=== PATIENT | female | born 1950 | race Two or more races ===

== ENCOUNTER → 2023-04-26 | Outpatient (CLI) | payer MEDICARE, SELFPAY ==
[2023-04-26 12:23] LABS: Absolute Neutrophil Count 2.6 X10^3/uL (2.0-7.7); Basophil# 0.06 X10^3/uL; Basophil% 1.1 % (0-1); Eosinophil# 0.25 X10^3/uL; Eosinophils% 4.6 % (0-5); Hematocrit 43.5 % (37-47); Hemoglobin 12.7 g/dL (12.0-15.0); Mean Corp Hgb Conc 29.2 g/dL (32-36); Mean Corpuscular Hgb 26.7 pg (27.0-32.0); Mean Corpuscular Volume 91.4 fL (81-99); Mean Platelet Vol. 11.3 fl (6.2-12.0); Monocyte# 0.32 X10^3/uL; Monocyte% 5.9 % (0-10); NRBC Flagged by Analyzer 0 % (0-5); Neutrophil # 2.64 X10^3/uL (2.7-7.7); Neutrophil % 49.2 % (47-70); Platelet Count 336 K/mm3 (150-450); RBC Distribution Width CV 13.2 % (11.6-14.6); RBC Distribution Width SD 43.9 fl (35.1-43.9); Red Blood Count 4.76 M/mm3 (4.2-5.4); White Blood Count 5.4 K/mm3 (4.4-11.0)
[2023-04-26 12:57] LABS: Vitamin D,25 Hydroxy 15.9 ng/mL
[2023-04-26 13:15] LABS: ALB/GLOB Ratio 1.1 RATIO (0.9-2.4); AST(SGOT) 18 U/L (15-37); Alanine Aminotransfer ALT/SGPT 28 U/L (13-56); Albumin, Serum 3.7 g/dL (3.2-5.0); Alkaline Phosphatase 72 U/L (45-117); Anion Gap 5 (5-15); BUN 14 mg/dL (7-18); Calcium,Total 9.6 mg/dL (8.5-10.1); Chloride 105 mmol/L (98-107); Cholesterol 196 mg/dL (200); Creatinine, Serum 0.64 mg/dL (0.55-1.02); EST Glomerular Filtration Rate 97 mL/min (>60); Est Glom Filt Rate - Afr Amer 117 mL/min (>60); Globulin 3.4 g/dL (2.2-4.2); Glucose 123 mg/dL (74-106); High Density Lipoprotein 47 mg/dL; Potassium 3.7 mmol/L (3.5-5.1); Protein, Total 7.1 g/dL (6.4-8.2); Sodium Level 139 mmol/L (136-145); Thyroid Stim Hormone (TSH) 0.49 uIU/mL (0.358-3.74); Triglycerides 381 mg/dL; Very Low Density Lipoprotein 76 mg/dL (5-40)
== END | disposition home or self-care (01) ==
PROVIDERS: PCP Internal Medicine; Referring Provider Internal Medicine; Visit Provider Internal Medicine
DX: E55.9 Vitamin D deficiency, unspecified (principal); E03.9 Hypothyroidism, unspecified; I10 Essential (primary) hypertension; M54.41 Lumbago with sciatica, right side; G89.29 Other chronic pain
CPT/HCPCS: 36415; 80053; 80061; 82306; 84443; 85025

== ENCOUNTER → 2023-07-07 | Outpatient (CLI) | payer MEDICARE, SELFPAY | END | disposition home or self-care (01) | LOC: LABSPEC 15:13 | PROVIDERS: PCP Internal Medicine; Referring Provider Physician Assistant; Visit Provider Physician Assistant | DX: R05.9 Cough, unspecified (principal) | CPT/HCPCS: 87635 ==

== ENCOUNTER → 2023-09-06 | Outpatient (CLI) | payer MEDICARE, SELFPAY ==
--- NOTE | 2023-09-06 14:40 | RAD_ITS ---
INDICATION: cough EXAMINATION/TECHNIQUE: X-RAY - XR Chest 2 Views COMPARISON: No relevant prior comparison study available FINDINGS: LINES/DEVICES: None. LUNGS: Small dense nodule in the left midlung zone likely due to granuloma. Elevation of the right hemidiaphragm. No focal infiltrate is seen. No evidence of pleural effusions. MEDIASTINUM AND CARDIOVASCULAR STRUCTURES: Cardiac silhouette not enlarged. Central airways and mediastinal contour are unremarkable. BONES AND SOFT TISSUES: Unremarkable. RAD/Chest PA and Lateral IMPRESSION: No radiographic evidence of acute cardiopulmonary disease. Electronically Signed: Martin Lim MD at 14:58 EST ,
--- OUTSIDE RECORDS SUMMARY | 2023-09-06 18:46 | XMS RPT_ITS | CCD ---
Author Name Unknown Address [address] [place] [address] Organization [facility] Care Team Providers Care Insole Lip Turner Name Role Phone [facility] LAI, DAGO Primary Care Physician JETHRO FORD, JEFFERY Myers Attending Lindsay DE DIOS MD, [facility] Primary Care Unavailable [facility] LAI, [facility] Primary Care Unavailable DODSON GAS TENDER-RESEARCH NURSE, CHEPE Attending Unavailab vinny DODSON APRN-RESEARCH NURSE, CHEPE Attending Santiago Quiñonez MD, DR ADELE [employer] Abbe DE DIOS MD, [facility] Primary Care Unavailable DODSONNAS HEBERT-RESEARCH NURSE, CHEPE Attending Santiago Quiñonez MD, DR ADELE [employer] Abbe DE DIOS MD, DAGO Primary Care Unavailable JUAN C LAI, DR ADELE [employer] Attending Abbe DE DIOS MD, D[facility] Primary Care Unavailable JUAN C LAI, DR ADELE [facility] Attending Abbe DE DIOS MD, [facility] Primary Care Unavailable [facility] LA[facility], DAGO Primary Care Unavailable DODSON GAS TENDER-RESEARCH NURSE, CHEPE Attending Santiago Martins APRN-CLEMENCIA, CHEPE Attending Santiago Jimenez MD, DAGO Primary Care Unavailable Allergies Allergy Classification Reported Allergen(s) Allergy Type Date of Onset Reaction(s) Facility (16 sources) Acetaminophen / HYDROcodone; Translations: [acetaminophen-hyd rocodone] Drug Allergy [facility] (16 sources) oxyCODONE; Translations: [oxycodone] Drug Allergy [facility] (16 sources) traMADol; Translations: [tramadol] Drug Allergy [facility] Medications Current Medications Medication Drug Class(es) Dates Sig (Normalized) Sig (Original) acetaminophen 500 mg oral tablet (12 sources) Start: 03-14-2023 Tylenol Extra Strength 500 mg oral tablet Dose : 1,000 mg = 2 tab(s), Oral, QID, PRN as needed for pain, # 120 tab(s), 0 Refill(s) Start Date: 03/14/23 Status: Ordered Problems Problem Classification Problem Date Documented Date Episodic/Chronic Anxiety disorders (16 sources) Anxiety 07-01-2020 Chronic Disorders of lipid metabolism (16 sources) Hyperlipidemia 07-01-2020 Chronic Essential hypertension (16 sources) Hypertensive disorder 07-01-2020 Chronic Spondylosis; intervertebral disc disorders; other back problems (20 sources) Degeneration of lumbar intervertebral disc; Translations: [Other intervertebral disc degeneration, lumbar region] Onset: 05-05-2021 Chronic Spondylosis; intervertebral disc disorders; other back problems (20 sources) Low back pain; Translations: [Low back pain] Onset: 05-05-2021 Episodic Thyroid disorders (16 sources) Hypothyroidism 11-21-2017 Chronic Results Test Name Value Interpretation Reference Range Facil ity Vital Signs Date Time Vital Sign Value Performing Clinician Facility 08-08-2023 09:26-0500 Diastolic Blood Pressure Non-Invasive 110 mm[Hg] CHEPE DODSON APRN-RESEARCH NURSE [facility] 08-08-2023 09:26-0500 Heart rate 89 /min CHEPE DODSON APRN-RESEARCH NURSE [facility] 08-08-2023 09:26-0500 Respiratory rate 16 /min CHEPE DODSON APRN-RESEARCH NURSE [facility] 08-08-2023 09:26-0500 Systolic Blood Pressure Non-Invasive 166 mm[Hg] CHEPE DODSON APRN-RESEARCH NURSE [facility] 08-08-2023 09:20-0500 Diastolic blood pressure 100 mm[Hg] CHEPE DODSON APRN-RESEARCH NURSE [facility] 08-08-2023 09:20-0500 Heart rate 90 /min CHEPE DODSON GAS TENDER-RESEARCH NURSE [facility] 08-08-2023 09:20-0500 Respiratory rate 17 /min CHEPE IVORY GAS TENDER-RESEARCH NURSE [facility] 08-08-2023 09:20-0500 Systolic blood pressure 200 mm[Hg] CHEPE DODSON GAS TENDER-RESEARCH NURSE [facility] 08-08-2023 09:12-0500 Diastolic Blood Pressure Non-Invasive 110 mm[Hg] CHEPE DODSON GAS TENDER-RESEARCH NURSE [facility] 08-08-2023 09:12-0500 Heart rate 89 /min CHEPE DODSON GAS TENDER-RESEARCH NURSE [facility] 08-08-2023 09:12-0500 Reason For Taking VItal Signs CHEPE DODSON GAS TENDER-RESEARCH NURSE [facility] 08-08-2023 09:12-0500 Respiratory rate 17 /min CHEPE DODSON GAS TENDER-RESEARCH NURSE [facility] 08-08-2023 09:12-0500 Systolic Blood Pressure Non-Invasive 170 mm[Hg] CHEPE DODSON GAS TENDER-RESEARCH NURSE [facility] 08-08-2023 09:04-0500 Diastolic Blood Pressure Non-Invasive 106 mm[Hg] CHEPE DODSON GAS TENDER-RESEARCH NURSE [facility] 08-08-2023 09:04-0500 Heart rate 98 /min CHEPE DODSON GAS TENDER-RESEARCH NURSE [facility] 08-08-2023 09:04-0500 Systolic Blood Pressure Non-Invasive 207 mm[Hg] CHEPE DODSNO GAS TENDER-RESEARCH NURSE [facility] 08-08-2023 08:43-0500 Blood Pressure Location CHEPE DODSON GAS TENDER-RESEARCH NURSE [facility] 08-08-2023 08:43-0500 Body height 165.1 cm CHEPE DODSON GAS TENDER-RESEARCH NURSE [facility] 08-08-2023 08:43-0500 Body weight 88.5 kg CHEPE DODSON GAS TENDER-RESEARCH NURSE [facility] 08-08-2023 08:43-0500 Body weight 32.47 kg/m2 CHEPE DODSON GAS TENDER-RESEARCH NURSE [facility] 08-08-2023 08:43-0500 Heart rate 116 /min CHEPE DODSON GAS TENDER-RESEARCH NURSE [facility] 05-01-2023 13:30-0400 Diastolic Blood Pressure Non-Invasive [address] ADELE IRIZARRY MD [facility] 05-01-2023 13:30-0400 Heart rate 96 /min DR ADELE IRIZARRY MD [facility] 05-01-2023 13:30-0400 Respiratory rate 16 /min DR ADELE IRIZARRY MD [facility] 05-01-2023 13:30-0400 Systolic Blood Pressure Non-Invasive [address] ADELE IRIZARRY MD [facility] 05-01-2023 13:18-0400 Blood Pressure Cuff Size DR ADELE IRIZARRY MD [facility] 05-01-2023 13:18-[address] ADELE IRIZARRY MD [facility] 05-01-2023 13:18-[address] ADELE IRIZARRY MD [facility] 05-01-2023 13:18-0400 Diastolic Blood Pressure Non-Invasive [address] ADELE IRIZARRY MD [facility] 05-01-2023 13:18-0400 Heart rate 94 /min DR ADELE IRIZARRY MD [facility] 05-01-2023 13:18-0400 Reason For Taking VItal Signs DR ADELE IRIZARRY MD [facility] 05-01-2023 13:18-0400 Respiratory rate 18 /min DR ADELE IRIZARRY MD [facility] 05-01-2023 13:18-0400 Systolic Blood Pressure Non-Invasive [address] ADELE IRIZARRY MD [facility] 05-01-2023 13:11-0400 Diastolic Blood Pressure Non-Invasive [address] ADELE IRIZARRY MD [facility] 05-01-2023 13:11-0400 Heart rate 99 /min DR ADELE IRIZARRY MD [facility] 05-01-2023 13:11-0400 Respiratory rate 16 /min DR ADELE IRIZARRY MD [facility] 05-01-2023 13:11-0400 Systolic Blood Pressure Non-Invasive [address] ADELE IRIZARRY MD [facility] 05-01-2023 13:05-0400 Heart rate 97 /min DR ADELE IRIZARRY MD [facility] 05-01-2023 12:18-0400 Blood Pressure Cuff Size DR ADELE IRIZARRY MD [facility] 05-01-2023 12:18-[address] ADELE IRIZARRY MD [facility] 05-01-2023 12:18-[address] ADELE IRIZARRY MD [facility] 05-01-2023 12:18-0400 Body height [address] ADELE IRIZARRY MD [facility] 05-01-2023 12:18-0400 Body weight 86.[address] ADELE IRIZARRY MD [facility] 05-01-2023 12:18-0400 Body weight 31.85 kg/m2 DR ADELE IRIZARRY MD [facility] 05-01-2023 12:18-0400 Heart rate 60 /min DR ADELE IRIZARRY MD [facility] 09-02-2022 08:23-0500 Diastolic Blood Pressure Non-Invasive 111 1 CHEPE DODOSN GAS TENDER-RESEARCH NURSE [facility] 09-02-2022 08:23-0500 Heart rate 77 /min CHEPE DODSON GAS TENDER-RESEARCH NURSE [facility] 09-02-2022 08:23-0500 Respiratory rate 16 /min CHEPE DODSON GAS TENDER-RESEARCH NURSE [facility] 09-02-2022 08:23-0500 Systolic Blood Pressure Non-Invasive 155 1 CHEPE DODSON GAS TENDER-RESEARCH NURSE [facility] 09-02-2022 08:15-0500 Diastolic Blood Pressure Non-Invasive 78 1 CHEPE DODSON GAS TENDER-RESEARCH NURSE [facility] 09-02-2022 08:15-0500 Heart rate 75 /min CHEPE DODSON GAS TENDER-RESEARCH NURSE [facility] 09-02-2022 08:15-0500 Respiratory rate 21 /min CHEPE DODSON GAS TENDER-RESEARCH NURSE [facility] 09-02-2022 08:15-0500 Systolic Blood Pressure Non-Invasive 188 1 CHEPE DODSON GAS TENDER-RESEARCH NURSE [facility] 09-02-2022 08:09-0500 Diastolic Blood Pressure Non-Invasive 81 1 CHEPE DODSON GAS TENDER-RESEARCH NURSE [facility] 09-02-2022 08:09-0500 Heart rate 77 /min CHEPE DODSON GAS TENDER-RESEARCH NURSE [facility] 09-02-2022 08:09-0500 Reason For Taking VItal Signs CHEPE DODSON GAS TENDER-RESEARCH NURSE [facility] 09-02-2022 08:09-0500 Respiratory rate 18 /min CHEPE DODSON GAS TENDER-RESEARCH NURSE [facility] 09-02-2022 08:09-0500 Systolic Blood Pressure Non-Invasive 193 1 CHEPE DODSON GAS TENDER-RESEARCH NURSE [facility] 09-02-2022 08:03-0500 Blood Pressure Method CHEPE DODSON GAS TENDER-RESEARCH NURSE [facility] 09-02-2022 08:03-0500 Heart rate 83 /min CHEPE DODSON GAS TENDER-RESEARCH NURSE [facility] 09-02-2022 07:55-0500 Blood Pressure Cuff Size CHEPE DODSON GAS TENDER-RESEARCH NURSE [facility] 09-02-2022 07:55-0500 Blood Pressure Location CHEPE DODSON GAS TENDER-RESEARCH NURSE [facility] 09-02-2022 07:55-0500 Blood Pressure Method CHEPE DODSON GAS TENDER-RESEARCH NURSE [facility] 09-02-2022 07:21-0500 Blood Pressure Cuff Size CHEPE DODSON GAS TENDER-RESEARCH NURSE [facility] 09-02-2022 07:21-0500 Blood Pressure Location CHEPE DODSON GAS TENDER-RESEARCH NURSE [facility] 09-02-2022 07:21-0500 Blood Pressure Method CHEPE DODSON GAS TENDER-RESEARCH NURSE [facility] 09-02-2022 07:21-0500 Body height 165.1 cm CHEPE DODSON GAS TENDER-RESEARCH NURSE [facility] 09-02-2022 07:21-0500 Body weight 87.8 kg CHEPE DODSON GAS TENDER-RESEARCH NURSE [facility] 09-02-2022 07:21-0500 Body weight 32.21 kg/m2 CHEPE DODSON GAS TENDER-RESEARCH NURSE [facility] 05-27-2022 13:51-0500 Diastolic blood pressure 93 mm[Hg] CHEPE DODSON GAS TENDER-RESEARCH NURSE [facility] 05-27-2022 13:51-0500 Heart rate 90 /min CHEPE DODSON GAS TENDER-RESEARCH NURSE [facility] 05-27-2022 13:51-0500 Respiratory rate 22 /min CHEPE DODSON GAS TENDER-RESEARCH NURSE [facility] 05-27-2022 13:51-0500 Systolic blood pressure 170 mm[Hg] CHEPE DODSON GAS TENDER-RESEARCH NURSE [facility] 05-27-2022 13:30-0500 Diastolic Blood Pressure Non-Invasive 97 1 CHEPE DODSON GAS TENDER-RESEARCH NURSE [facility] 05-27-2022 13:30-0500 Heart rate 84 /min CHEPE DODSON GAS TENDER-RESEARCH NURSE [facility] 05-27-2022 13:30-0500 Respiratory rate 14 /min CHEPE DODSON GAS TENDER-RESEARCH NURSE [facility] 05-27-2022 13:30-0500 Systolic Blood Pressure Non-Invasive 178 1 CHEPE DODSON GAS TENDER-RESEARCH NURSE [facility] 05-27-2022 13:27-0500 Diastolic Blood Pressure Non-Invasive 95 1 CHEPE DODSON GAS TENDER-RESEARCH NURSE [facility] 05-27-2022 13:27-0500 Heart rate 88 /min CHEPE DODSON GAS TENDER-RESEARCH NURSE [facility] 05-27-2022 13:27-0500 Respiratory rate 12 /min CHEPE DODSON GAS TENDER-RESEARCH NURSE [facility] 05-27-2022 13:27-0500 Systolic Blood Pressure Non-Invasive 157 1 CHEPE DODSON GAS TENDER-RESEARCH NURSE [facility] 05-27-2022 13:24-0500 Diastolic Blood Pressure Non-Invasive 105 1 CHEPE DODSON GAS TENDER-RESEARCH NURSE [facility] 05-27-2022 13:24-0500 Heart rate 90 /min CHEPE DODSON GAS TENDER-RESEARCH NURSE [facility] 05-27-2022 13:24-0500 Systolic Blood Pressure Non-Invasive 217 1 CHEPE DODSON GAS TENDER-RESEARCH NURSE [facility] 05-27-2022 12:50-0500 Blood Pressure Location CHEPE DODSON GAS TENDER-RESEARCH NURSE [facility] 05-27-2022 12:50-0500 Blood Pressure Method CHEPE DODSON GAS TENDER-RESEARCH NURSE [facility] 05-27-2022 12:50-0500 Body height 165.1 cm CHEPE DODSON GAS TENDER-RESEARCH NURSE [facility] 05-27-2022 12:50-0500 Body weight 89.1 kg CHEPE DODSON GAS TENDER-RESEARCH NURSE [facility] 05-27-2022 12:50-0500 Body weight 32.69 kg/m2 CHEPE DODSON GAS TENDER-RESEARCH NURSE [facility] 03-11-2022 10:19-0400 Diastolic blood pressure 69 mm[Hg] CHEPE DODSON GAS TENDER-RESEARCH NURSE [facility] 03-11-2022 10:19-0400 Heart rate 81 /min CHEPE DODSON GAS TENDER-RESEARCH NURSE [facility] 03-11-2022 10:19-0400 Respiratory rate 16 /min CHEPE DODSON GAS TENDER-RESEARCH NURSE [facility] 03-11-2022 10:19-0400 Systolic blood pressure 125 mm[Hg] CHEPE DODSON GAS TENDER-RESEARCH NURSE [facility] 03-11-2022 10:04-0400 Heart rate 90 /min CHEPE DODSON GAS TENDER-RESEARCH NURSE [facility] 03-11-2022 10:04-0400 Respiratory rate 16 /min CHEPE DODSON GAS TENDER-RESEARCH NURSE [facility] 03-11-2022 10:00-0400 Heart rate 78 /min CHEPE DODSON GAS TENDER-RESEARCH NURSE [facility] 03-11-2022 10:00-0400 Respiratory rate 18 /min CHEPE DODSON GAS TENDER-RESEARCH NURSE [facility] 03-11-2022 10:00-0400 systolic 178 mm[Hg] CHEPE DODSON GAS TENDER-RESEARCH NURSE [facility] 03-11-2022 09:55-0400 diastolic 100 mm[Hg] CHEPE DODSON GAS TENDER-RESEARCH NURSE [facility] 03-11-2022 09:55-0400 Heart rate 87 /min CHEPE DODSON GAS TENDER-RESEARCH NURSE [facility] 03-11-2022 09:55-0400 systolic 192 mm[Hg] CHEPE DODSON GAS TENDER-RESEARCH NURSE [facility] 03-11-2022 09:50-0400 diastolic 102 mm[Hg] CHEPE DODSON GAS TENDER-RESEARCH NURSE [facility] 03-11-2022 09:50-0400 systolic 183 mm[Hg] CHEPE DODSON GAS TENDER-RESEARCH NURSE [facility] 03-11-2022 09:29-0400 Body height 160 cm CHEPE DODSON GAS TENDER-RESEARCH NURSE [facility] 03-11-2022 09:29-0400 Body weight 91 kg CHEPE DODSON GAS TENDER-RESEARCH NURSE [facility] 03-11-2022 09:29-0400 Body weight 35.55 kg/m2 CHEPE DODSON GAS TENDER-RESEARCH NURSE [facility] 03-11-2022 09:29-0400 Heart rate 76 /min CHEPE DODSON GAS TENDER-RESEARCH NURSE [facility] 12-01-2021 13:42-0400 Diastolic Blood Pressure NBP 90 1 CHEPE DODSON GAS TENDER-RESEARCH NURSE [facility] 12-01-2021 13:42-0400 Heart rate 94 /min CHEPE DODSON GAS TENDER-RESEARCH NURSE [facility] 12-01-2021 13:42-0400 Respiratory rate 15 /min CHEPE DODSON GAS TENDER-RESEARCH NURSE [facility] 12-01-2021 13:42-0400 Systolic Blood Pressure NBP 190 1 CHEPE DODSON GAS TENDER-RESEARCH NURSE [facility] 12-01-2021 13:40-0400 Heart rate 99 /min CHEPE DODSON GAS TENDER-RESEARCH NURSE [facility] 12-01-2021 13:40-0400 Respiratory rate 14 /min CHEPE DODSON GAS TENDER-RESEARCH NURSE [facility] 12-01-2021 13:25-0400 Diastolic Blood Pressure NBP 85 1 CHEPE DODSON GAS TENDER-RESEARCH NURSE [facility] 12-01-2021 13:25-0400 Heart rate 93 /min CHEPE DODSON GAS TENDER-RESEARCH NURSE [facility] 12-01-2021 13:25-0400 Respiratory rate 24 /min CHEPE DODSON GAS TENDER-RESEARCH NURSE [facility] 12-01-2021 13:25-0400 Systolic Blood Pressure NBP 178 1 CHEPE DODSON GAS TENDER-RESEARCH NURSE [facility] 12-01-2021 13:16-0400 Diastolic Blood Pressure NBP 90 1 CHEPE DODSON GAS TENDER-RESEARCH NURSE [facility] 12-01-2021 13:16-0400 Heart rate 94 /min CHEPE DODSON GAS TENDER-RESEARCH NURSE [facility] 12-01-2021 13:16-0400 Systolic Blood Pressure NBP 186 1 CHEPE DODSON GAS TENDER-RESEARCH NURSE [facility] 12-01-2021 12:53-0400 Body height 165.1 cm CHEPE DODSON GAS TENDER-RESEARCH NURSE [facility] 12-01-2021 12:53-0400 Body weight 88.8 kg CHEPE DODSON GAS TENDER-RESEARCH NURSE [facility] 12-01-2021 12:53-0400 Body weight 32.58 kg/m2 CHEPE DODSON GAS TENDER-RESEARCH NURSE [facility] 12-01-2021 12:53-0400 diastolic 84 mm[Hg] CHEPE DODSON GAS TENDER-RESEARCH NURSE [facility] 12-01-2021 12:53-0400 Heart rate 104 /min CHEPE DODSON GAS TENDER-RESEARCH NURSE [facility] 12-01-2021 12:53-0400 systolic 163 mm[Hg] CHEPE DODSON GAS TENDER-RESEARCH NURSE [facility] 09-17-2021 13:12-0500 Diastolic blood pressure 98 mm[Hg] DR ADELE IRIZARRY MD [facility] 09-17-2021 13:12-0500 Heart rate 8 /min DR ADELE IRIZARRY MD [facility] 09-17-2021 13:12-0500 Respiratory rate 18 /min DR ADELE IRIZARRY MD [facility] 09-17-2021 13:12-0500 Systolic blood pressure 157 mm[Hg] DR ADELE IRIZARRY MD [facility] 09-17-2021 13:08-0500 Diastolic blood pressure 83 mm[Hg] DR ADELE IRIZARRY MD [facility] 09-17-2021 13:08-0500 Heart rate 92 /min DR ADELE IRIZARRY MD [facility] 09-17-2021 13:08-0500 Mean blood pressure 109 mm[Hg] DR ADELE IRIZARRY MD [facility] 09-17-2021 13:08-0500 Respiratory rate 17 /min DR ADELE IRIZARRY MD [facility] 09-17-2021 13:08-0500 Systolic blood pressure 160 mm[Hg] DR ADELE IRIZARRY MD [facility] 09-17-2021 12:59-0500 Diastolic blood pressure 103 mm[Hg] DR ADELE IRIZARRY MD [facility] 09-17-2021 12:59-0500 Heart rate 90 /min DR ADELE IRIZARRY MD [facility] 09-17-2021 12:59-0500 Mean blood pressure 114 mm[Hg] DR ADELE IRIZARRY MD [facility] 09-17-2021 12:59-0500 Respiratory rate 16 /min DR ADELE IRIZARRY MD [facility] 09-17-2021 12:59-0500 Systolic blood pressure 137 mm[Hg] DR ADELE IRIZARRY MD [facility] 09-17-2021 12:51-0500 Diastolic Blood Pressure NBP [address] ADELE IRIZARRY MD [facility] 09-17-2021 12:51-0500 Heart rate 92 /min DR ADELE IRIZARRY MD [facility] 09-17-2021 12:51-0500 Systolic Blood Pressure NBP [address] ADELE IRIZARRY MD [facility] 09-17-2021 12:46-0500 Diastolic Blood Pressure NBP [address] ADELE IRIZARRY MD [facility] 09-17-2021 12:46-0500 Systolic Blood Pressure NBP [address] ADELE IRIZARRY MD [facility] 09-17-2021 12:21-0500 Body height 165.[address] ADELE IRIZARRY MD [facility] 09-17-2021 12:21-0500 Body weight 87.[address] ADELE IRIZARRY MD [facility] 09-17-2021 12:21-0500 Body weight 32.06 kg/m2 DR ADELE IRIZARRY MD [facility] 09-17-2021 12:21-0500 Heart rate 87 /min DR ADELE IRIZARRY MD [facility] 07-05-2021 12:54-0500 Diastolic Blood Pressure NBP [address] ADELE IRIZARRY MD [facility] 07-05-2021 12:54-0500 Heart rate 100 /min DR ADELE IRIZARRY MD [facility] 07-05-2021 12:54-0500 Respiratory rate 16 /min DR ADELE IRIZARRY MD [facility] 07-05-2021 12:54-0500 Systolic Blood Pressure NBP [address] ADELE IRIZARRY MD [facility] 07-05-2021 12:48-0500 Diastolic Blood Pressure NBP [address] ADELE IRIZARRY MD [facility] 07-05-2021 12:48-0500 Systolic Blood Pressure NBP [address] ADELE IRIZARRY MD [facility] 07-05-2021 12:43-0500 Heart rate 100 /min DR ADELE IRIZARRY MD [facility] 07-05-2021 12:43-0500 Respiratory rate 16 /min DR ADELE IRIZARRY MD [facility] 07-05-2021 12:36-0500 diastolic 93 mm[Hg] DR ADELE IRIZARRY MD [facility] 07-05-2021 12:36-0500 Heart rate 96 /min DR ADELE IRIZARRY MD [facility] 07-05-2021 12:36-0500 Respiratory rate 22 /min DR ADELE IRIZARRY MD [facility] 07-05-2021 12:36-0500 systolic 202 mm[Hg] DR ADELE IRIZARRY MD [facility] 07-05-2021 12:31-0500 diastolic 104 mm[Hg] DR ADELE IRIZARRY MD [facility] 07-05-2021 12:31-0500 Heart rate 98 /min DR ADELE IRIZARRY MD [facility] 07-05-2021 12:31-0500 systolic 207 mm[Hg] DR ADELE IRIZARRY MD [facility] 07-05-2021 12:12-0500 Body height 165.[address] ADELE IRIZARRY MD [facility] 07-05-2021 12:12-0500 Body weight 87.[address] ADELE IRIZARRY MD [facility] 07-05-2021 12:12-0500 Body weight 31.99 kg/m2 DR ADELE IRIZARRY MD [facility] 07-05-2021 12:12-0500 diastolic 102 mm[Hg] DR ADELE IRIZARRY MD [facility] 07-05-2021 12:12-0500 Heart rate 108 /min DR ADELE IRIZARRY MD [facility] 07-05-2021 12:12-0500 systolic 141 mm[Hg] DR ADELE IRIZARRY MD [facility] 05-05-2021 12:40-0400 Heart rate 84 /min DR ADELE IRIZARRY MD [facility] 05-05-2021 12:40-0400 Respiratory rate 16 /min DR ADELE IRIZARRY MD [facility] 05-05-2021 12:37-0400 Diastolic Blood Pressure NBP [address] ADELE IRIZARRY MD [facility] 05-05-2021 12:37-0400 Heart rate 93 /min DR ADELE IRIZARRY MD [facility] 05-05-2021 12:37-0400 Respiratory rate 16 /min DR ADELE IRIZARRY MD [facility] 05-05-2021 12:37-0400 Systolic Blood Pressure NBP [address] ADELE IRIZARRY MD [facility] 05-05-2021 12:23-0400 Diastolic Blood Pressure NBP [address] ADELE IRIZARRY MD [facility] 05-05-2021 12:23-0400 Heart rate 93 /min DR ADELE IRIZARRY MD [facility] 05-05-2021 12:23-0400 Respiratory rate 17 /min DR ADELE IRIZARRY MD [facility] 05-05-2021 12:23-0400 Systolic Blood Pressure NBP [address] ADELE IRIZARRY MD [facility] 05-05-2021 12:18-0400 Diastolic Blood Pressure NBP [address] ADELE IRIZARRY MD [facility] 05-05-2021 12:18-0400 Heart rate 95 /min DR ADELE IRIZARRY MD [facility] 05-05-2021 12:18-0400 Systolic Blood Pressure NBP [address] ADELE IRIZARRY MD [facility] 05-05-2021 11:52-0400 Body height 165.[address] ADELE IRIZARRY MD [facility] 05-05-2021 11:52-0400 Body weight 86.[address] ADELE IRIZARRY MD [facility] 05-05-2021 11:52-0400 Body weight 31.59 kg/m2 DR ADELE IRIZARRY MD [facility] 05-05-2021 11:52-0400 diastolic 80 mm[Hg] DR ADELE IRIZARRY MD [facility] 05-05-2021 11:52-0400 Heart rate 103 /min DR ADELE IRIZARRY MD [facility] 05-05-2021 11:52-0400 systolic 129 mm[Hg] DR ADELE IRIZARRY MD [facility] Encounters Encounter Date Encounter Type Care Provider Facility Start: 08-08-2023 End: 08-08-2023 ambulatory DAGO DE DIOS MD Facility:A Start: 08-08-2023 End: 08-08-2023 Minor Procedure CHEPE DODSON APRN-RESEARCH NURSE [facility] Start: 06-26-2023 End: 06-27-2023 ambulatory DAGO DE DIOS MD Facility:A Start: 05-01-2023 End: 05-01-[address] ADELE IRIZARRY MD Facility:A Start: 05-01-2023 End: 05-01-[address] ADELE IRIZARRY MD [facility] Start: 03-14-2023 End: 03-15-2023 ambulatory JEFFERY MORELOS APRN-SIGNAL ENGINEER Facility:A Start: 03-14-2023 End: 03-14-2023 Patient encounter procedure JEFFERY A JETHRO GAS TENDER-SIGNAL ENGINEER [facility] Start: 01-10-2023 End: 01-11-[address] ADELE IRIZARRY MD Facility:A Start: 01-10-2023 End: 01-10-[address] ADELE IRIZARRY MD [facility] Start: 12-23-2022 End: 12-23-2022 ambulatory CHEPE DODSON GAS TENDER-RESEARCH NURSE Facility:A Start: 11-25-2022 End: 11-26-2022 ambulatory CHEPE DODSON GAS TENDER-RESEARCH NURSE Facility:A Start: 11-25-2022 End: 11-25-2022 Patient encounter procedure CHEPE DODSON GAS TENDER-RESEARCH NURSE [facility] Start: 09-02-2022 End: 09-02-2022 ambulatory CHEPE IVORY GAS TENDER-RESEARCH NURSE Facility:A Start: 09-02-2022 End: 09-02-2022 Minor Procedure CHEPE DODSON GAS TENDER-RESEARCH NURSE [facility] Start: 08-05-2022 End: 08-05-2022 Patient encounter procedure CHEPE IVORY GAS TENDER-RESEARCH NURSE [facility] Start: 05-27-2022 End: 05-27-2022 Minor Procedure CHEPE IVORY GAS TENDER-RESEARCH NURSE [facility] Start: 05-13-2022 End: 05-13-2022 Patient encounter procedure CHEPE IVORY GAS TENDER-RESEARCH NURSE [facility] Start: 03-11-2022 End: 03-11-2022 Minor Procedure CHEPE DODSON GAS TENDER-RESEARCH NURSE [facility] Start: 02-04-2022 End: 02-04-2022 Patient encounter procedure CHEPE DODSON GAS TENDER-RESEARCH NURSE [facility] Start: 12-01-2021 End: 12-01-2021 Minor Procedure CHEPE DODSON GAS TENDER-RESEARCH NURSE [facility] Start: 09-17-2021 End: 09-17-[address] ADELE IRIZARRY MD [facility] Start: 09-10-2021 End: 09-10-[address] ADELE IRIZARRY MD [facility] Start: 07-05-2021 End: 07-05-[address] ADELE IRIZARRY MD [facility] Start: 05-05-2021 End: 05-05-[address] ADELE IRIZARRY MD [facility] Procedures Date Procedure Procedure Detail Performing Clinician Start: 08-08-2023 PM Inj Spine L[facility] 1 CHEPE DODSON GAS TENDER-RESEARCH NURSE Payers Date Payer Category Payer Private Health Insurance [id number] 1950 Unknown [id number] [id number] 1950 Unknown [id number] [id number] [id number] 1950 Unknown [id number] 2.16.8 [id number] 1950 Unknown [id number] 2.16.8 [id number] 1950 Unknown [id number] 2.16.8 [id number] 1950 Unknown [id number] 2.16.8 [id number] 1950 Unknown [id number] 2.16.8 [id number] 1950 Unknown [id number] 2.16.8 [id number] Social History Date Type Detail Facility Start: 07-01-2020 Never smoked t obacco (finding) [facility] Sex Assigned At Female [facility] Functional Status Date Assessment Result Facility 08-08-2023 Functional Status More than 8 hours [facility] 05-01-2023 Functional Status [facility] 05-01-2023 Functional Status More than 8 hours [facility] 09-02-2022 Functional Status [facility] 05-27-2022 Functional Status [facility] 03-11-2022 Functional Status Maintained [facility] 12-01-2021 Functional Status [facility] Mental Status Date Assessment Result Facility 08-08-2023 Mental Status Orientation Oriented x 4 [facility] 05-01-2023 Mental Status Oriented x 4 [facility] 09-02-2022 Mental Status Orientation Oriented x 4 [facility] 03-11-2022 Mental Status Oriented x 4 [facility] 12-01-2021 Mental Status [facility] Clinical Notes 05-05-2021 to 08-08-2023 Note Date & Type Note Facility 08-08-2023 Hospital Discharge instructions Patient Education 08/08/2023 09:15:52 PM Discharge Instructions, Mark billingsley (10/16/20) ([id number]) [facility] Discharge Instructions POST PROCEDURE INSTRUCTIONS ___xx__There are no general limitations to your activities. You may experience some weakness for the next 3-4 hours, in which case you should limit your activity until strength and sensation returns. xx Your pain may increase for the next 24-48 hours, until the injection begins to relieve your pain. xx Rest at home today. xx Do not drive any vehicle, operate any heavy machinery or use any sharp objects for the remainder of the day. xx Be cautious of stairways, since your coordination may be impaired and do not drink alcoholic beverages or make major decisions for 24 hours. xx May resume driving a car in ___6 hours if no sedation was used, in 24 hours if sedation was used. xx Resume regular activity in 24 hours.. xx Resume your regular diet. Progress diet slowly, starting with water. If no difficulty with swallowing, progress to clear liquids (tea, broth, parvin logan) and then on to solids. xx Resume aspirin products/blood thinners in 24 hours. Start Lovenox injections on date . xx Keep bandaid dry and remove in 24 hours. MEDICATIONS: BEFORE PROCEDURE xx Physician s Pre-procedure Instruction Sheet given to patient. Stop Coumadin/Pradaxa/Eliquis/Xarelto for 5 days before procedure - date . Have ProTime drawn on (Try to have drawn at [facility] to speed results to us). Stop blood thinners Plavix, Pletal for 10 days before procedure date . Stop Aspirin, Persantine, Aggrenox for 7 days before procedure date . Stop Lovenox 24 hours before your appointment time. xx Stop anti-inflammatory medications (Aleve, Advil, Mobic, Naprosyn, etc.) for 5 days before procedure. xx Stop ALL Supplements and Vitamins for 10 days before your procedure. xx Take blood pressure medications the day of your procedure. xx Do not eat ____8 hours before procedure. xx Do not drink 2___ hours before procedure. xx May have clear liquids (water, plain tea/coffee, clear soda) up to 2 hours before procedure. xx Bring someone to drive you home. [facility] 08-08-2023 Summary of episode note Discharge Instructions Thank you for allowing [facility] to assist you with your healthcare needs. The following is important discharge information regarding your hospital visit. Your Care Team DAGO DE DIOS MD Medications Please ask your primary doctor or pharmacist before taking any other medication not listed, including over the counter drugs, herbal medications, vitamins and or supplements as they may interact with your home medications. What How Much When Why Instructions Last Dose Unchanged acetaminophen (Tylenol Extra Strength 500 mg oral tablet) 2 tab(s) by mouth Four (4) times a day as needed for as needed for pain Unchanged cholecalciferol (D3 50 mcg (2000 intl units) oral capsule) by mouth Once a day Unchanged chondroitin-glucosamine (Chondroitin-Glucosamine) 2 cap by mouth Once a day Unchanged cyanocobalamin (Vitamin B12 500 mcg oral tablet) 1 tab(s) by mouth Once a day Unchanged escitalopram (escitalopram 20 mg oral tablet) TAKE 1 TABLET BY MOUTH ONCE DAILY Unchanged fenofibrate (fenofibrate 134 mg oral capsule) 1 cap by mouth Once a day Unchanged gabapentin (gabapentin 600 mg oral tablet) 1 tab(s) by mouth Three (3) times a day Lumbar degenerative disc disease Duration: 90 Days fill 2022 Unchanged hydroCHLOROthiazide (hydroCHLOROthiazide 25 mg oral tablet) 1 tab(s) by mouth Every day Unchanged icosapent (Icosapent Ethyl 1 g oral capsule) TAKE 2 CAPSULES BY MOUTH TWICE DAILY Unchanged icosapent (Vascepa 1 g oral capsule) 2 cap by mouth Four (4) times a day Unchanged levothyroxine (levothyroxine 150 mcg (0.15 mg) oral tablet) 1 tab(s) by mouth Once a day Unchanged losartan (losartan 25 mg oral tablet) TAKE 1 TABLET BY MOUTH ONCE DAILY Unchanged magnesium oxide (magnesium oxide 400 mg oral capsule) 1 cap by mouth Once a day Unchanged melatonin 3 Milligram by mouth Daily at bedtime Unchanged Misc Medication Unchanged Misc Medication Unchanged Misc Medication (estroven) 1 cap by mouth Once a day Unchanged vitamin E (vitamin E 400 intl units oral capsule) by mouth Two (2) times a day Please take this list to your next doctor s visit. Bring all medications you take, including over the counter medications, herbals and other supplements with you to your doctor s visit. Patients and families are reminded to discard old lists and to update any records with all medication providers or retail pharmacies. Education Materials [facility] Discharge Instructions POST PROCEDURE INSTRUCTIONS ___xx__There are no general limitations to your activities. You may experience some weakness for the next 3-4 hours, in which case you should limit your activity until strength and sensation returns. xx Your pain may increase for the next 24-48 hours, until the injection begins to relieve your pain. xx Rest at home today. xx Do not drive any vehicle, operate any heavy machinery or use any sharp objects for the remainder of the day. xx Be cautious of stairways, since your coordination may be impaired and do not drink alcoholic beverages or make major decisions for 24 hours. xx May resume driving a car in ___6 hours if no sedation was used, in 24 hours if sedation was used. xx Resume regular activity in 24 hours.. xx Resume your regular diet. Progress diet slowly, starting with water. If no difficulty with swallowing, progress to clear liquids (tea, broth, parvin logan) and then on to solids. xx Resume aspirin products/blood thinners in 24 hours. Start Lovenox injections on date . xx Keep bandaid dry and remove in 24 hours. MEDICATIONS: BEFORE PROCEDURE xx Physician s Pre-procedure Instruction Sheet given to patient. Stop Coumadin/Pradaxa/Eliquis/Xarelto for 5 days before procedure - date . Have ProTime drawn on (Try to have drawn at [facility] to speed results to us). Stop blood thinners Plavix, Pletal for 10 days before procedure date . Stop Aspirin, Persantine, Aggrenox for 7 days before procedure date . Stop Lovenox 24 hours before your appointment time. xx Stop anti-inflammatory medications (Aleve, Advil, Mobic, Naprosyn, etc.) for 5 days before procedure. xx Stop ALL Supplements and Vitamins for 10 days before your procedure. xx Take blood pressure medications the day of your procedure. xx Do not eat ____8 hours before procedure. xx Do not drink 2___ hours before procedure. xx May have clear liquids (water, plain tea/coffee, clear soda) up to 2 hours before procedure. xx Bring someone to drive you home. Additional Information VACCINATE! IT SAVES LIVES! Members of the community who have not yet received the COVID-19 vaccine and would like to receive it can visit one of [facility] vaccine clinics. There are many vaccine clinic locations within the [facility]. For locations and available times, please visit [email or web address].[place].gov/. It is important to note that some COVID mobile vaccine clinics are held outdoors and may be canceled in rainy or stormy conditions. To learn more about pediatric vaccinations (ages 5-11), we invite you to visit the [facility] webpage. https://www.[facility].org/pag es/3044-Hvyva-Lcqpmfwhqzh-Frequent xg-Gweuv-Pukslqsxq.html To learn more about the COVID-19 vaccine, we invite you to visit the CDC website for a list of frequently asked questions.https://www.cdc.gov/alberto navirus/2019-ncov/vaccines/faq.htm [facility] Patient Portal Access Instructions: Stay connected with your healthcare team and access your personal medical information anytime with the [facility] Patient Portal. Please follow the directions below to create your [facility] account: 1.Access the email account you provided upon registration to the hospital/physician office.2.Look for an invitation email from [facility].3.Open the email and access the invitation link: Accept Invitation to [facility].4.Fill in the required pressley to create your account. To access your account, visit [email or web address]. Click the blue button labeled Access Patient Portal and then log in with the username and password that you created in the steps above. You will be able to view your test results, lab results, a summary of your visits, upcoming appointments and more. There is also a convenient messaging option where you can send secure messages to your provider. In addition, you will have the ability to download any documents or summaries to your computer and/or send the information securely to a physician. Remember that your healthcare information is confidential, so carefully consider who you will allow to register on the [facility] Patient Portal for access to your information. You can also access the [facility] Patient Portal on the [facility] papo. Simply click on Patient Portal and then log into your account. If you would like to receive a full copy of your medical records, please contact the [facility] Medical Records Department by calling [phone], Monday through Monday between 8 a.m. and 4:30 p.m. HOW TO SAFELY DISPOSE OF PRESCRIPTION MEDICATIONS Please use one of the following methods to safely dispose of your unused medications. 1.Use a drug disposal kit: the drug disposal pouch allows you to safely discard your old and unused drugs. Ask your nurse to give you one when you are discharged.2.Visit a local take-back location: Many local pharmacies and police departments have programs that collect old and unwanted prescription drugs. Call your local pharmacy or go to http://bit.Spinal Modulation/3D5Fm3x to find one close to you.3.Make use of household items: Use cat litter or old coffee grounds to dispose medications if other options are not available. Mix your drugs with these household products, seal them in an airtight container and throw it into the garbage. Call [facility]: [phone] to be sure your drugs can be disposed of in this way. Some medicines may require a different approach.4.Never flush your medications down the toilet. IF YOU HAVE BEEN PRESCRIBED AN OPIOID FOR PAIN If you have been prescribed an opioid (such as hydrocodone, oxycodone or morphine), it is critical to understand the possible side effects and risks of opioid pain medications. Even when taken as directed, opioids can have several side effects including: Tolerance, meaning you might need to take more of a medication for the same pain relief. Nausea, vomiting and/or constipation. Sleepiness, dizziness, dry mouth, confusion, depression or itching. Physical dependence, meaning you have withdrawal symptoms when a medication is stopped, can develop within a few days. KNOW YOUR RESPONSIBILITIES It is important to know exactly how much and how often to take the opioid pain medications you are prescribed. Never take opioids in higher amounts or more often than prescribed. Do not combine opioids with alcohol or other drugs that cause drowsiness, such as benzodiazepines, also known as benzos, including diazepam and alprazolam, muscle relaxants or sleep aids. Never sell or share prescription opioids. This is illegal. Store opioids in a secure place and out of reach of others (including children, family, friends and visitors). The last page of this document has been signed and retained as a CHART COPY. Signatures Patient Education Materials PM Discharge Instructions, Mark billingsley (10/16/20) ([id number]) Medication Leaflets My discharge plan and instructions have been reviewed and explained to me and IGINGER SILVIA M understand my current condition and have read and understand these discharge instructions. I have received a written copy of the plan/instructions. If I have questions, I am aware that I should contact my doctor. 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 You may experience some weakness for the next 3-4 hours, in which case you should limit your activity until strength and sensation returns. xx Your pain may increase for the next 24-48 hours, until the injection begins to relieve your pain. xx Rest at home today. Do not drive any vehicle, operate any heavy machinery or use any sharp objects for the remainder of the day. Be cautious of stairways, since your coordination may be impaired and do not drink alcoholic beverages or make major decisions for 24 hours. xx May resume driving a car in ___6 hours. xx Resume regular activity in 24 hours.. xx Resume your regular diet. Progress diet slowly, starting with water. If no difficulty with swallowing, progress to clear liquids (tea, broth, parvin logan) and then on to solids. xx Resume aspirin products/blood thinners in 24 hours. Start Lovenox injections on date . xx Keep bandaid dry and remove in 24 hours. MEDICATIONS: BEFORE PROCEDURE Physician s Pre-procedure Instruction Sheet given to patient. Stop Coumadin/Pradaxa/Eliquis/Xarelto for 5 days before procedure - date . Have ProTime drawn on (Try to have drawn at [facility] to speed results to us). Stop blood thinners Plavix, Pletal for 10 days before procedure date . Stop Aspirin, Persantine, Aggrenox for 7 days before procedure date . Stop Lovenox 24 hours before your appointment time. Stop anti-inflammatory medications (Aleve, Advil, Mobic, Naprosyn, etc.) for 5 days before procedure. Stop ALL Supplements and Vitamins for 10 days before your procedure. Take blood pressure medications the day of your procedure. Do not eat hours before procedure. Do not drink hours before procedure. May have clear liquids (water, plain tea/coffee, clear soda) up to 2 hours before procedure. Bring someone to drive you home. [facility] 05-01-2023 Summary of episode note Discharge Instructions Thank you for allowing [facility] to assist you with your healthcare needs. The following is important discharge information regarding your hospital visit. Your Care Team DAGO DE DIOS MD, Dr Your Diagnosis Lumbosacral radiculopathy What to do next Instructions From Your Doctor please read all printed material you received today Follow Up Appointments repeat injection in 2-3 months Allergies Ultram Vicodin oxyCODONE Medications Please ask your primary doctor or pharmacist before taking any other medication not listed, including over the counter drugs, herbal medications, vitamins and or supplements as they may interact with your home medications. What How Much When Why Instructions Last Dose Unchanged acetaminophen (Tylenol Extra Strength 500 mg oral tablet) 2 tab(s) by mouth Four (4) times a day as needed for as needed for pain Unchanged cholecalciferol (D3 50 mcg (2000 intl units) oral capsule) by mouth Once a day Unchanged chondroitin-glucosamine (Chondroitin-Glucosamine) 2 cap by mouth Once a day Unchanged cyanocobalamin (Vitamin B12 500 mcg oral tablet) 1 tab(s) by mouth Once a day Unchanged escitalopram (escitalopram 20 mg oral tablet) TAKE 1 TABLET BY MOUTH ONCE DAILY Unchanged fenofibrate (fenofibrate 134 mg oral capsule) 1 cap by mouth Once a day Unchanged gabapentin (gabapentin 600 mg oral tablet) 1 tab(s) by mouth Three (3) times a day Lumbar degenerative disc disease Duration: 90 Days fill 12-08-22 Unchanged hydroCHLOROthiazide (hydroCHLOROthiazide 25 mg oral tablet) 1 tab(s) by mouth Every day Unchanged icosapent (Icosapent Ethyl 1 g oral capsule) TAKE 2 CAPSULES BY MOUTH TWICE DAILY Unchanged icosapent (Vascepa 1 g oral capsule) 2 cap by mouth Four (4) times a day Unchanged levothyroxine (levothyroxine 150 mcg (0.15 mg) oral tablet) 1 tab(s) by mouth Once a day Unchanged losartan (losartan 25 mg oral tablet) TAKE 1 TABLET BY MOUTH ONCE DAILY Unchanged magnesium oxide (magnesium oxide 400 mg oral capsule) 1 cap by mouth Once a day Unchanged melatonin 3 Milligram by mouth Daily at bedtime Unchanged Misc Medication Unchanged Misc Medication Unchanged Misc Medication (estroven) 1 cap by mouth Once a day Unchanged vitamin E (vitamin E 400 intl units oral capsule) by mouth Two (2) times a day Please take this list to your next doctor s visit. Bring all medications you take, including over the counter medications, herbals and other supplements with you to your doctor s visit. Patients and families are reminded to discard old lists and to update any records with all medication providers or retail pharmacies. Education Materials [facility] Discharge Instructions POST PROCEDURE INSTRUCTIONS ___xx__There are no general limitations to your activities. You may experience some weakness for the next 3-4 hours, in which case you should limit your activity until strength and sensation returns. xx Your pain may increase for the next 24-48 hours, until the injection begins to relieve your pain. xx Rest at home today. Do not drive any vehicle, operate any heavy machinery or use any sharp objects for the remainder of the day. Be cautious of stairways, since your coordination may be impaired and do not drink alcoholic beverages or make major decisions for 24 hours. xx May resume driving a car in ___6 hours. xx Resume regular activity in 24 hours.. xx Resume your regular diet. Progress diet slowly, starting with water. If no difficulty with swallowing, progress to clear liquids (tea, broth, parvin logan) and then on to solids. xx Resume aspirin products/blood thinners in 24 hours. Start Lovenox injections on date . xx Keep bandaid dry and remove in 24 hours. MEDICATIONS: BEFORE PROCEDURE Physician s Pre-procedure Instruction Sheet given to patient. Stop Coumadin/Pradaxa/Eliquis/Xarelto for 5 days before procedure - date . Have ProTime drawn on (Try to have drawn at [facility] to speed results to us). Stop blood thinners Plavix, Pletal for 10 days before procedure date . Stop Aspirin, Persantine, Aggrenox for 7 days before procedure date . Stop Lovenox 24 hours before your appointment time. Stop anti-inflammatory medications (Aleve, Advil, Mobic, Naprosyn, etc.) for 5 days before procedure. Stop ALL Supplements and Vitamins for 10 days before your procedure. Take blood pressure medications the day of your procedure. Do not eat hours before procedure. Do not drink hours before procedure. May have clear liquids (water, plain tea/coffee, clear soda) up to 2 hours before procedure. Bring someone to drive you home. Additional Information VACCINATE! IT SAVES LIVES! Members of the community who have not yet received the COVID-19 vaccine and would like to receive it can visit one of [facility] vaccine clinics. There are many vaccine clinic locations within the [facility]. For locations and available times, please visit [email or web address] It is important to note that some COVID mobile vaccine clinics are held outdoors and may be canceled in rainy or stormy conditions. To learn more about pediatric vaccinations (ages 5-11), we invite you to visit the [facility] webpage. https://www.[facility].org/pag es/9754-Mimbl-Ybssflqtkof-Frequent bb-Tzjfe-Ubwifwxrj.html To learn more about the COVID-19 vaccine, we invite you to visit the CDC website for a list of frequently asked questions.https://www.cdc.gov/alberto navirus/2019-ncov/vaccines/faq.htm [facility] Patient Portal Access Instructions: Stay connected with your healthcare team and access your personal medical information anytime with the [facility] Patient Portal. Please follow the directions below to create your [facility] account: 1.Access the email account you provided upon registration to the hospital/physician office.2.Look for an invitation email from [facility].3.Open the email and access the invitation link: Accept Invitation to [facility].4.Fill in the required pressley to create your account. To access your account, visit [employer]. Click the blue button labeled Access Patient Portal and then log in with the username and password that you created in the steps above. You will be able to view your test results, lab results, a summary of your visits, upcoming appointments and more. There is also a convenient messaging option where you can send secure messages to your provider. In addition, you will have the ability to download any documents or summaries to your computer and/or send the information securely to a physician. Remember that your healthcare information is confidential, so carefully consider who you will allow to register on the [facility] Patient Portal for access to your information. You can also access the [facility] Patient Portal on the [facility] [employer]. Simply click on Patient Portal and then log into your account. If you would like to receive a full copy of your medical records, please contact the [facility] Medical Records Department by calling [phone], Monday through Monday between 8 a.m. and 4:30 p.m. HOW TO SAFELY DISPOSE OF PRESCRIPTION MEDICATIONS Please use one of the following methods to safely dispose of your unused medications. 1.Use a drug disposal kit: the drug disposal pouch allows you to safely discard your old and unused drugs. Ask your nurse to give you one when you are discharged.2.Visit a local take-back location: Many local pharmacies and police departments have programs that collect old and unwanted prescription drugs. Call your local pharmacy or go to http://Mobile Location, IP.Spinal Modulation/9O8Ua3g to find one close to you.3.Make use of household items: Use cat litter or old coffee grounds to dispose medications if other options are not available. Mix your drugs with these household products, seal them in an airtight container and throw it into the garbage. Call [facility]: [phone] to be sure your drugs can be disposed of in this way. Some medicines may require a different approach.4.Never flush your medications down the toilet. IF YOU HAVE BEEN PRESCRIBED AN OPIOID FOR PAIN If you have been prescribed an opioid (such as hydrocodone, oxycodone or morphine), it is critical to understand the possible side effects and risks of opioid pain medications. Even when taken as directed, opioids can have several side effects including: Tolerance, meaning you might need to take more of a medication for the same pain relief. Nausea, vomiting and/or constipation. Sleepiness, dizziness, dry mouth, confusion, depression or itching. Physical dependence, meaning you have withdrawal symptoms when a medication is stopped, can develop within a few days. KNOW YOUR RESPONSIBILITIES It is important to know exactly how much and how often to take the opioid pain medications you are prescribed. Never take opioids in higher amounts or more often than prescribed. Do not combine opioids with alcohol or other drugs that cause drowsiness, such as benzodiazepines, also known as benzos, including diazepam and alprazolam, muscle relaxants or sleep aids. Never sell or share prescription opioids. This is illegal. Store opioids in a secure place and out of reach of others (including children, family, friends and visitors). The last page of this document has been signed and retained as a CHART COPY. Signatures Patient Education Materials PM Discharge InstructionsLakeisha Takla (10/16/20) (CUSTOM) Medication Leaflets My discharge plan and instructions have been reviewed and explained to me and IGINGER SILVIA M understand my current condition and have read and understand these discharge instructions. I have received a written copy of the plan/instructions. If I have questions, I am aware that I should contact my doctor. 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 You may experience some weakness for the next 3-4 hours, in which case you should limit your activity until strength and sensation returns. xx Your pain may increase for the next 24-48 hours, until the injection begins to relieve your pain. xx Rest at home today. xx Do not drive any vehicle, operate any heavy machinery or use any sharp objects for the remainder of the day. xx Be cautious of stairways, since your coordination may be impaired and do not drink alcoholic beverages or make major decisions for 24 hours. xx May resume driving a car in ___6 hours if no sedation was used, in 24 hours if sedation was used. xx Resume regular activity in 24 hours.. xx Resume your regular diet. Progress diet slowly, starting with water. If no difficulty with swallowing, progress to clear liquids (tea, broth, parvin logan) and then on to solids. xx Resume aspirin products/blood thinners in 24 hours. Start Lovenox injections on date . xx Keep bandaid dry and remove in 24 hours. MEDICATIONS: BEFORE PROCEDURE xx Physician s Pre-procedure Instruction Sheet given to patient. Stop Coumadin/Pradaxa/Eliquis/Xarelto for 5 days before procedure - date . Have ProTime drawn on (Try to have drawn at [facility] to speed results to us). Stop blood thinners Plavix, Pletal for 10 days before procedure date . Stop Aspirin, Persantine, Aggrenox for 7 days before procedure date . Stop Lovenox 24 hours before your appointment time. xx Stop anti-inflammatory medications (Aleve, Advil, Mobic, Naprosyn, etc.) for 5 days before procedure. xx Stop ALL Supplements and Vitamins for 10 days before your procedure. xx Take blood pressure medications the day of your procedure. xx Do not eat ____8 hours before procedure. xx Do not drink 2___ hours before procedure. xx May have clear liquids (water, plain tea/coffee, clear soda) up to 2 hours before procedure. xx Bring someone to drive you home. [facility] 09-02-2022 Summary of episode note Discharge Instructions Thank you for allowing Nicole to assist you with your healthcare needs. The following is important discharge information regarding your hospital visit. Your Care Team DAGO DE DIOS MD Your Diagnosis Lumbosacral radiculopathy Lumbar spinal stenosis Lumbar radiculopathy Lumbar degenerative disc disease Medications Please ask your primary doctor or pharmacist before taking any other medication not listed, including over the counter drugs, herbal medications, vitamins and or supplements as they may interact with your home medications. What How Much When Why Instructions Last Dose Changed gabapentin (gabapentin 600 mg oral tablet) 1 tab(s) by mouth Two (2) times a day Lumbar degenerative disc disease Duration: 30 Days Pickup at [id number] Unchanged acetaminophen-ibuprofen (Advil Dual Action With Acetaminophen 250 mg-125 mg oral tablet) 2 tab(s) by mouth Every 8 hours Unchanged cholecalciferol (Vitamin D3) 5,000 unit(s) by mouth Once a day Unchanged cyanocobalamin (Vitamin B12 500 mcg oral tablet) 1 tab(s) by mouth Every day Unchanged diclofenac (diclofenac sodium 75 mg oral delayed release tablet) 1 tab(s) by mouth Every 12 hours as needed for as needed for arthritis Unchanged escitalopram (escitalopram 10 mg oral tablet) 1 tab(s) by mouth Once a day Unchanged fenofibrate (fenofibrate 134 mg oral capsule) 1 cap by mouth Once a day with a meal Unchanged herbal/ nutritional product (garlic oral capsule) 1 cap by mouth Two (2) times a day PARSLEY Unchanged hydroCHLOROthiazide (hydroCHLOROthiazide 25 mg oral tablet) 1 tab(s) by mouth Every day Unchanged icosapent (Icosapent Ethyl 1 g oral capsule) TAKE 2 CAPSULES BY MOUTH TWICE DAILY Unchanged levothyroxine (levothyroxine 150 mcg (0.15 mg) oral tablet) 1 tab(s) by mouth Once a day Unchanged losartan (losartan 25 mg oral tablet) TAKE 1 TABLET BY MOUTH ONCE DAILY Unchanged magnesium oxide (magnesium oxide 400 mg (240 mg elemental magnesium) oral tablet) 1 tab(s) by mouth Once a day Unchanged melatonin Daily at bedtime Unchanged Misc Medication Unchanged Misc Medication (estroven) 1 cap by mouth Once a day Unchanged valerian (Valerian Root) Unchanged vitamin E (vitamin E 400 intl units oral capsule) by mouth Two (2) times a day Pharmacy Information [facility]: [address] [place], [place] [phone] Please take this list to your next doctor s visit. Bring all medications you take, including over the counter medications, herbals and other supplements with you to your doctor s visit. Patients and families are reminded to discard old lists and to update any records with all medication providers or retail pharmacies. Education Materials [facility] Discharge Instructions POST PROCEDURE INSTRUCTIONS ___xx__There are no general limitations to your activities. You may experience some weakness for the next 3-4 hours, in which case you should limit your activity until strength and sensation returns. xx Your pain may increase for the next 24-48 hours, until the injection begins to relieve your pain. xx Rest at home today. xx Do not drive any vehicle, operate any heavy machinery or use any sharp objects for the remainder of the day. xx Be cautious of stairways, since your coordination may be impaired and do not drink alcoholic beverages or make major decisions for 24 hours. xx May resume driving a car in ___6 hours if no sedation was used, in 24 hours if sedation was used. xx Resume regular activity in 24 hours.. xx Resume your regular diet. Progress diet slowly, starting with water. If no difficulty with swallowing, progress to clear liquids (tea, broth, parvin logan) and then on to solids. xx Resume aspirin products/blood thinners in 24 hours. Start Lovenox injections on date . xx Keep bandaid dry and remove in 24 hours. MEDICATIONS: BEFORE PROCEDURE xx Physician s Pre-procedure Instruction Sheet given to patient. Stop Coumadin/Pradaxa/Eliquis/Xarelto for 5 days before procedure - date . Have ProTime drawn on (Try to have drawn at [facility] to speed results to us). Stop blood thinners Plavix, Pletal for 10 days before procedure date . Stop Aspirin, Persantine, Aggrenox for 7 days before procedure date . Stop Lovenox 24 hours before your appointment time. xx Stop anti-inflammatory medications (Aleve, Advil, Mobic, Naprosyn, etc.) for 5 days before procedure. xx Stop ALL Supplements and Vitamins for 10 days before your procedure. xx Take blood pressure medications the day of your procedure. xx Do not eat ____8 hours before procedure. xx Do not drink 2___ hours before procedure. xx May have clear liquids (water, plain tea/coffee, clear soda) up to 2 hours before procedure. xx Bring someone to drive you home. Additional Information VACCINATE! IT SAVES LIVES! Members of the community who have not yet received the COVID-19 vaccine and would like to receive it can visit one of [facility] vaccine clinics. There are many vaccine clinic locations within the [facility]. For locations and available times, please visit [email or web address] It is important to note that some COVID mobile vaccine clinics are held outdoors and may be canceled in rainy or stormy conditions. To learn more about pediatric vaccinations (ages 5-11), we invite you to visit the [facility] webpage. https://www.[facility].org/pag es/7529-Zyixn-Mrtovdobffd-Frequent uj-Ypfdp-Lmlvzzimq.html To learn more about the COVID-19 vaccine, we invite you to visit the CDC website for a list of frequently asked questions. https://www.cdc.gov/coronavirus/-ncov/vaccines/faq.html [facility] Patient Portal Access Instructions: Stay connected with your healthcare team and access your personal medical information anytime with the [facility] Patient Portal.If you would like a full copy of your medical records, please contact the [facility] Medical Records Department, Monday through Monday between 8a.m. and 4:30p.m. Please follow the directions below to access the portal: 1.Access the email account you provided upon registration to the [facility].2.Look for an invitation email from [facility].3.Open the email and access the invitation link: Accept Invitation to [facility]4.Fill in the required pressley to create your account. Sign into www.[employer] with your username and password that you created in the above steps to stay up to date. You can then view a summary of results, a summary of your visits, and the ability to download your summaries to your computer or send the information securely to a physician. Remember that your healthcare information is confidential, so carefully consider who you will allow to register on the [facility] Patient Portal for access to your information. You can also access the [facility] Patient Portal on the [employer]. Simply click on Health Records under Health Data and then click on the [employer] logo. HOW TO SAFELY DISPOSE OF PRESCRIPTION MEDICATIONS Please use one of the following methods to safely dispose of your unused medications. 1.Use a drug disposal kit: the drug disposal pouch allows you to safely discard your old and unused drugs. Ask your nurse to give you one when you are discharged.2.Visit a local take-back location: Many local pharmacies and police departments have programs that collect old and unwanted prescription drugs. Call your local pharmacy or go to http://Mobile Location, IP.Spinal Modulation/3L5Ig5x to find one close to you.3.Make use of household items: Use cat litter or old coffee grounds to dispose medications if other options are not available. Mix your drugs with these household products, seal them in an airtight container and throw it into the garbage. Call [facility]: [phone] to be sure your drugs can be disposed of in this way. Some medicines may require a different approach.4.Never flush your medications down the toilet. IF YOU HAVE BEEN PRESCRIBED AN OPIOID FOR PAIN If you have been prescribed an opioid (such as hydrocodone, oxycodone or morphine), it is critical to understand the possible side effects and risks of opioid pain medications. Even when taken as directed, opioids can have several side effects including: Tolerance, meaning you might need to take more of a medication for the same pain relief. Nausea, vomiting and/or constipation. Sleepiness, dizziness, dry mouth, confusion, depression or itching. Physical dependence, meaning you have withdrawal symptoms when a medication is stopped, can develop within a few days. KNOW YOUR RESPONSIBILITIES It is important to know exactly how much and how often to take the opioid pain medications you are prescribed. Never take opioids in higher amounts or more often than prescribed. Do not combine opioids with alcohol or other drugs that cause drowsiness, such as benzodiazepines, also known as benzos, including diazepam and alprazolam, muscle relaxants or sleep aids. Never sell or share prescription opioids. This is illegal. Store opioids in a secure place and out of reach of others (including children, family, friends and visitors). The last page of this document has been signed and retained as a CHART COPY. Signatures Patient Education Materials PM Discharge Instructionsanalilia Takla (10/16/20) ([id number]) Medication Leaflets My discharge plan and instructions have been reviewed and explained to me and I,AUREA MILES understand my current condition and have read and understand these discharge instructions. I have received a written copy of the plan/instructions. If I have questions, I am aware that I should contact my doctor. 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 August 05, 2022 office note Digitally Signed by ADELE IRIZARRY MD on 09/02/2022 07:49 AM [facility] 05-27-2022 Hospital Discharge instructions Patient Education 05/27/2022 13:49:09 PM Discharge Instructionsanalilia Takla (10/16/20) ([id number]) [facility] Discharge Instructions POST PROCEDURE INSTRUCTIONS ___xx__There are no general limitations to your activities. You may experience some weakness for the next 3-4 hours, in which case you should limit your activity until strength and sensation returns. xx Your pain may increase for the next 24-48 hours, until the injection begins to relieve your pain. xx Rest at home today. xx Do not drive any vehicle, operate any heavy machinery or use any sharp objects for the remainder of the day. xx Be cautious of stairways, since your coordination may be impaired and do not drink alcoholic beverages or make major decisions for 24 hours. xx May resume driving a car in ___6 hours if no sedation was used, in 24 hours if sedation was used. xx Resume regular activity in 24 hours.. xx Resume your regular diet. Progress diet slowly, starting with water. If no difficulty with swallowing, progress to clear liquids (tea, broth, parvin logan) and then on to solids. xx Resume aspirin products/blood thinners in 24 hours. Start Lovenox injections on date . xx Keep bandaid dry and remove in 24 hours. MEDICATIONS: BEFORE PROCEDURE xx Physician s Pre-procedure Instruction Sheet given to patient. Stop Coumadin/Pradaxa/Eliquis/Xarelto for 5 days before procedure - date . Have ProTime drawn on (Try to have drawn at [facility] to speed results to us). Stop blood thinners Plavix, Pletal for 10 days before procedure date . Stop Aspirin, Persantine, Aggrenox for 7 days before procedure date . Stop Lovenox 24 hours before your appointment time. xx Stop anti-inflammatory medications (Aleve, Advil, Mobic, Naprosyn, etc.) for 5 days before procedure. xx Stop ALL Supplements and Vitamins for 10 days before your procedure. xx Take blood pressure medications the day of your procedure. xx Do not eat ____8 hours before procedure. xx Do not drink 2___ hours before procedure. xx May have clear liquids (water, plain tea/coffee, clear soda) up to 2 hours before procedure. xx Bring someone to drive you home. [facility] 05-27-2022 Summary of episode note Discharge Instructions Thank you for allowing Nicole to assist you with your healthcare needs. The following is important discharge information regarding your hospital visit. Your Care Team DAGO DE DIOS MD Your Diagnosis Lumbosacral radiculopathy Lumbar spinal stenosis Lumbar radiculopathy Lumbar degenerative disc disease What to do next The Following Activity and Diet Have Been Ordered for You No qualifying data available. No qualifying data available. The Following Equipment Has Been Ordered for You No qualifying data available. The Following Treatments Have Been Ordered for You Discharge Labs No qualifying data available. Discharge Radiology No qualifying data available. Other Therapies No qualifying data available. Post Acute Orders No qualifying data available. Someone Will Contact You Regarding These Home Health Referrals No home referrals have been ordered for you. No one will call you. Allergies Ultram Vicodin oxyCODONE Medications Please ask your primary doctor or pharmacist before taking any other medication not listed, including over the counter drugs, herbal medications, vitamins and or supplements as they may interact with your home medications. What How Much When Why Instructions Last Dose Unchanged acetaminophen (Tylenol) 650 Milligram by mouth As needed for as needed for pain Unchanged cholecalciferol (Vitamin D3) 5,000 unit(s) by mouth Once a day Unchanged cyanocobalamin (Vitamin B12 500 mcg oral tablet) 1 tab(s) by mouth Every day Unchanged diclofenac (diclofenac sodium 75 mg oral delayed release tablet) 1 tab(s) by mouth Every 12 hours as needed for as needed for arthritis Unchanged escitalopram (escitalopram 10 mg oral tablet) 1 tab(s) by mouth Once a day Unchanged fenofibrate (fenofibrate 134 mg oral capsule) 1 cap by mouth Once a day with a meal Unchanged gabapentin (gabapentin 600 mg oral tablet) 1 tab(s) by mouth Daily at bedtime Lumbar degenerative disc disease Duration: 30 Days Unchanged herbal/ nutritional product (garlic oral capsule) 1 cap by mouth Two (2) times a day PARSLEY Unchanged hydroCHLOROthiazide (hydroCHLOROthiazide 25 mg oral tablet) 1 tab(s) by mouth Every day Unchanged icosapent (Icosapent Ethyl 1 g oral capsule) TAKE 2 CAPSULES BY MOUTH TWICE DAILY Unchanged levothyroxine (levothyroxine 150 mcg (0.15 mg) oral tablet) 1 tab(s) by mouth Once a day Unchanged losartan (losartan 25 mg oral tablet) TAKE 1 TABLET BY MOUTH ONCE DAILY Unchanged magnesium oxide (magnesium oxide 400 mg (240 mg elemental magnesium) oral tablet) 1 tab(s) by mouth Once a day Unchanged melatonin Daily at bedtime Unchanged Misc Medication (estroven) 1 cap by mouth Once a day Unchanged valerian (Valerian Root) Unchanged vitamin E (vitamin E 400 intl units oral capsule) by mouth Two (2) times a day Please take this list to your next doctor s visit. Bring all medications you take, including over the counter medications, herbals and other supplements with you to your doctor s visit. Patients and families are reminded to discard old lists and to update any records with all medication providers or retail pharmacies. Education Materials [facility] Pain Management Discharge Instructions POST PROCEDURE INSTRUCTIONS ___xx__There are no general limitations to your activities. You may experience some weakness for the next 3-4 hours, in which case you should limit your activity until strength and sensation returns. xx Your pain may increase for the next 24-48 hours, until the injection begins to relieve your pain. xx Rest at home today. xx Do not drive any vehicle, operate any heavy machinery or use any sharp objects for the remainder of the day. xx Be cautious of stairways, since your coordination may be impaired and do not drink alcoholic beverages or make major decisions for 24 hours. xx May resume driving a car in ___6 hours if no sedation was used, in 24 hours if sedation was used. xx Resume regular activity in 24 hours.. xx Resume your regular diet. Progress diet slowly, starting with water. If no difficulty with swallowing, progress to clear liquids (tea, broth, parvin logan) and then on to solids. xx Resume aspirin products/blood thinners in 24 hours. Start Lovenox injections on date . xx Keep bandaid dry and remove in 24 hours. MEDICATIONS: BEFORE PROCEDURE xx Physician s Pre-procedure Instruction Sheet given to patient. Stop Coumadin/Pradaxa/Eliquis/Xarelto for 5 days before procedure - date . Have ProTime drawn on (Try to have drawn at [facility] facility to speed results to us). Stop blood thinners Plavix, Pletal for 10 days before procedure date . Stop Aspirin, Persantine, Aggrenox for 7 days before procedure date . Stop Lovenox 24 hours before your appointment time. xx Stop anti-inflammatory medications (Aleve, Advil, Mobic, Naprosyn, etc.) for 5 days before procedure. xx Stop ALL Supplements and Vitamins for 10 days before your procedure. xx Take blood pressure medications the day of your procedure. xx Do not eat ____8 hours before procedure. xx Do not drink 2___ hours before procedure. xx May have clear liquids (water, plain tea/coffee, clear soda) up to 2 hours before procedure. xx Bring someone to drive you home. Additional Information VACCINATE! IT SAVES LIVES! Members of the community who have not yet received the COVID-19 vaccine and would like to receive it can visit one of [facility] vaccine clinics. There are many vaccine clinic locations within the [facility]. For locations and available times, please visit [email or web address] It is important to note that some COVID mobile vaccine clinics are held outdoors and may be canceled in rainy or stormy conditions. To learn more about pediatric vaccinations (ages 5-11), we invite you to visit the [facility] webpage. [email or web address] [email or web address]-Dxdcovzlfiw-Frequent oq-Srogn-Szumwqdcq.html To learn more about the COVID-19 vaccine, we invite you to visit the [facility] website for a list of frequently asked questions. [email or web address]/assets/Patient t-kic-Emerqqky/wbxwo-Yfpiohz-Krjui ently_Asked-Questions.pdf [facility] Patient Portal Access Instructions: Stay connected with your healthcare team and access your personal medical information anytime with the [facility] Patient Portal.If you would like a full copy of your medical records, please contact the [facility] Medical Records Department, Monday through Monday between 8a.m. and 4:30p.m. Please follow the directions below to access the portal: 1.Access the email account you provided upon registration to the hospital.2.Look for an invitation email from [facility].3.Open the email and access the invitation link: Accept Invitation to [facility]4.Fill in the required pressley to create your account. Sign into [email or web address] with your username and password that you created in the above steps to stay up to date. You can then view a summary of results, a summary of your visits, and the ability to download your summaries to your computer or send the information securely to a physician. Remember that your healthcare information is confidential, so carefully consider who you will allow to register on the [facility] [employer] Patient Portal for access to your information. You can also access the [facility] Patient Portal on the [employer]. Simply click on Health Records under Health Data and then click on the [facility] logo. HOW TO SAFELY DISPOSE OF PRESCRIPTION MEDICATIONS Please use one of the following methods to safely dispose of your unused medications. 1.Use a drug disposal kit: the drug disposal pouch allows you to safely discard your old and unused drugs. Ask your nurse to give you one when you are discharged.2.Visit a local take-back location: Many local pharmacies and police departments have programs that collect old and unwanted prescription drugs. Call your local pharmacy or go to http://Mobile Location, IP.Spinal Modulation/0T1Nt3e to find one close to you.3.Make use of household items: Use cat litter or old coffee grounds to dispose medications if other options are not available. Mix your drugs with these household products, seal them in an airtight container and throw it into the garbage. Call [facility]: [phone] to be sure your drugs can be disposed of in this way. Some medicines may require a different approach.4.Never flush your medications down the toilet. IF YOU HAVE BEEN PRESCRIBED AN OPIOID FOR PAIN If you have been prescribed an opioid (such as hydrocodone, oxycodone or morphine), it is critical to understand the possible side effects and risks of opioid pain medications. Even when taken as directed, opioids can have several side effects including: Tolerance, meaning you might need to take more of a medication for the same pain relief. Nausea, vomiting and/or constipation. Sleepiness, dizziness, dry mouth, confusion, depression or itching. Physical dependence, meaning you have withdrawal symptoms when a medication is stopped, can develop within a few days. KNOW YOUR RESPONSIBILITIES It is important to know exactly how much and how often to take the opioid pain medications you are prescribed. Never take opioids in higher amounts or more often than prescribed. Do not combine opioids with alcohol or other drugs that cause drowsiness, such as benzodiazepines, also known as benzos, including diazepam and alprazolam, muscle relaxants or sleep aids. Never sell or share prescription opioids. This is illegal. Store opioids in a secure place and out of reach of others (including children, family, friends and visitors). The last page of this document has been signed and retained as a CHART COPY. Signatures Patient Education Materials PM Discharge Instructions, Mark billingsley (10/16/20) ([id number]) Medication Leaflets My discharge plan and instructions have been reviewed and explained to me and I,AUREA MILES understand my current condition and have read and understand these discharge instructions. I have received a written copy of the plan/instructions. If I have questions, I am aware that I should contact my doctor. 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 05-13-2022 office note Digitally Signed by ADELE IRIZARRY MD on 05/27/2022 01:17 PM [facility] 1. Lumbosacral radiculopathy 2. Lumbar spinal stenosis 3. Lumbar radiculopathy 4. Lumbar degenerative disc disease We will proceed with a lumbar epidural steroid injection under x-ray guidance. Details of the procedure as well as potential risks, benefits and alternatives including and not limited to medication management, awaiting natural history, exercise based therapy and surgical intervention were discussed with the patient. Risks of the procedure were also discussed with the patient in details including and not limited to bleeding, infection, nerve injury, worsening pain, paralysis, . The patient seems to understand and agreed to proceed with the plan. I also talked with the patient about the risk of benitez COVID-19. Pre/post procedure instructions were provided to the patient and explained in details patient verbalized agreement and understanding. OARRS report was reviewed and assessed and it was appropriate for patient s prescription regimen. I have reviewed the [place] Automated Rx Reporting System (OARRS) report for this patient for refill pattern and other prescriber involvement as part of the appropriate surveillance for the provision of acute and chronic controlled medications. The report was requested, reviewed and was considered appropriate in the prescribing process. Thank you, for allowing me to participate in the care of the patient if you have any questions regarding plan of care please do not hesitate to contact me. This document was created using voice recognition software. Spelling, grammar and syntax errors are possible. Future Appointments Appointment Date:05/13/2022 11:30:00 AM Scheduled Provider:CHEPE DODSON Location:PM Office Appointment Type: GUSTABO DODSON AT [facility] 08-26-2022 Hospital Discharge instructions Patient Education 03/11/2022 09:49:54 PM Discharge Instructions, Mark billingsley (10/16/20) ([id number]) [facility] Management Discharge Instructions POST PROCEDURE INSTRUCTIONS ___xx__There are no general limitations to your activities. You may experience some weakness for the next 3-4 hours, in which case you should limit your activity until strength and sensation returns. xx Your pain may increase for the next 24-48 hours, until the injection begins to relieve your pain. xx Rest at home today. xx Do not drive any vehicle, operate any heavy machinery or use any sharp objects for the remainderof the day. xx Be cautious of stairways, since your coordination may be impaired and do not drink alcoholic beverages or make major decisions for 24 hours. xx May resume driving a car in ___6 hours if no sedation was used, in 24 hours if sedation wasused. xx Resume regular activity in 24 hours.. xx Resume your regular diet. Progress diet slowly, starting with water. If no difficulty with swallowing, progress to clear liquids (tea, broth, parvin logan) and then on to solids. xx Resume aspirin products/blood thinners in 24 hours. Start Lovenox injections on date . xx Keep bandaid dry and remove in 24 hours. MEDICATIONS: BEFORE PROCEDURE xx Physician s Pre-procedure Instruction Sheet given to patient. Stop Coumadin/Pradaxa/Eliquis/Xarelto for 5 days before procedure - date . Have ProTime drawn on (Try to have drawn at [facility] to speed results to us). Stop blood thinners Plavix, Pletal for 10 days before procedure date . Stop Aspirin, Persantine, Aggrenox for 7 days before procedure date . Stop Lovenox 24 hours before your appointment time. xx Stop anti-inflammatory medications (Aleve, Advil, Mobic, Naprosyn, etc.) for 5 days before procedure. xx Stop ALL Supplements and Vitamins for 10 days before your procedure. xx Take blood pressure medications the day of your procedure. xx Do not eat ____8 hours before procedure. xx Do not drink 2___ hours before procedure. xx May have clear liquids (water, plain tea/coffee, clear soda) up to 2 hours before procedure. xx Bring someone to drive you home. [facility] 08-26-2022 Summary of episode note Discharge Instructions Thank you for allowing [facility] to assist you with your healthcare needs. The following is importantdischarge information regarding your hospital visit. Your Care Team DAGO DE DIOS MD, Dr. Education [facility] Discharge Instructions POST PROCEDURE INSTRUCTIONS ___xx__There are no general limitations to your activities. You may experience some weakness for the next 3-4 hours, in which case you should limit your activity until strength and sensation returns. xx Your pain may increase for the next 24-48 hours, until the injection begins to relieve your pain. xx Rest at home today. xx Do not drive any vehicle, operate any heavy machinery or use any sharp objects for the remainderof the day. xx Be cautious of stairways, since your coordination may be impaired and do not drink alcoholic beverages or make major decisions for 24 hours. xx May resume driving a car in ___6 hours if no sedation was used, in 24 hours if sedation wasused. xx Resume regular activity in 24 hours.. xx Resume your regular diet. Progress diet slowly, starting with water. If no difficulty with swallowing, progress to clear liquids (tea, broth, parvin logan) and then on to solids. xx Resume aspirin products/blood thinners in 24 hours. Start Lovenox injections on date . xx Keep bandaid dry and remove in 24 hours. MEDICATIONS: BEFORE PROCEDURE xx Physician s Pre-procedure Instruction Sheet given to patient. Stop Coumadin/Pradaxa/Eliquis/Xarelto for 5 days before procedure - date . Have ProTime drawn on (Try to have drawn at [facility] to speed results to us). Stop blood thinners Plavix, Pletal for 10 days before procedure date . Stop Aspirin, Persantine, Aggrenox for 7 days before procedure date . Stop Lovenox 24 hours before your appointment time. xx Stop anti-inflammatory medications (Aleve, Advil, Mobic, Naprosyn, etc.) for 5 days before procedure. xx Stop ALL Supplements and Vitamins for 10 days before your procedure. xx Take blood pressure medications the day of your procedure. xx Do not eat ____8 hours before procedure. xx Do not drink 2___ hours before procedure. xx May have clear liquids (water, plain tea/coffee, clear soda) up to 2 hours before procedure. xx Bring someone to drive you home. Additional Information VACCINATE! IT SAVES LIVES! Members of the community who have not yet received the COVID-19 vaccine and would like to receive it can visit one of [facility] vaccine clinics. There are many vaccine clinic locations within the [facility]. For locations and available times, please visit [email or web address]/. It is important to note that some COVID mobile vaccine clinics are held outdoors and may be canceled in rainy or stormy conditions. To learn more about pediatric vaccinations (ages 5-11), we invite you to visit the [facility] webpage. [email or web address]/[email or web address]-[email or web address] [email or web address] learn more about the COVID-19 vaccine, we invite you to visit the [employer] website for a list of frequently asked questions. [email or web address]/gyjta-Njbiadt-Noemyadomy _[email or web address]-Questions.pdf [facility] Patient Portal Access Instructions: Stay connected with your healthcare team and access your personal medical information anytime with the [facility] Patient Portal.If you would like a full copy of your medical records, please contact the [facility] Medical Records Department, Monday through Monday between 8a.m. and 4:30p.m. Please follow the directions below to access the portal: 1.Access the email account you provided upon registration to the hospital.2.Look for an invitation email from [facility].3.Open the email and access the invitation link: Accept Invitation to [facility]4.Fill in the required pressley to create your account. Sign into [email or web address] with your username and password that you created in the above steps to stay up to date. You can then view a summary of results, a summary of your visits, and the ability to download your summaries to your computer or send the information securely to a physician. Remember that your healthcare information is confidential, so carefully consider who you will allow to register on the [facility] Patient Portal for access to your information. You can also access the [facility] Patient Portal on the [employer]. Simply click on Health Records under [employer] and then click on the [employer] logo. HOW TO SAFELY DISPOSE OF PRESCRIPTION MEDICATIONS Please use one of the following methods to safely dispose of your unused medications. 1.Use a drug disposal kit: the drug disposal pouch allows you to safely discard your old and unuseddrugs. Ask your nurse to give you one when you are discharged.2.Visit a local take-back location: Many local pharmacies and police departments have programs that collect old and unwanted prescriptiondrugs. Call your local pharmacy or go to http://Mobile Location, IP.Spinal Modulation/3K4Jd0g to find one close to you.3.Make use of household items: Use cat litter or old coffee grounds to dispose medications if other options arenot available. Mix your drugs with these household products, seal them in an airtight container andthrow it into the garbage. Call [facility]: [phone] to be sure your drugs can be disposed of in this way. Some medicines may require a different approach.4.Never flush your medications down the toilet. IF YOU HAVE BEEN PRESCRIBED AN OPIOID FOR PAIN If you have been prescribed an opioid (such as hydrocodone, oxycodone or morphine), it is critical to understand the possible side effects and risks of opioid pain medications. Even when taken as directed, opioids can have several side effects including: Tolerance, meaning you might need to take more of a medication for the same pain relief. Nausea, vomiting and/or constipation. Sleepiness, dizziness, dry mouth, confusion, depression or itching. Physical dependence, meaning you have withdrawal symptoms when a medication is stopped, can develop within a few days. KNOW YOUR RESPONSIBILITIES It is important to know exactly how much and how often to take the opioid pain medications you are prescribed. Never take opioids in higher amounts or more often than prescribed. Do not combine opioids with alcohol or other drugs that cause drowsiness, such as benzodiazepines, also known as benzos, including diazepam and alprazolam, muscle relaxants or sleep aids. Never sell or share prescription opioids. This is illegal. Store opioids in a secure place and out of reach of others (including children, family, friends and visitors). The last page of this document has been signed and retained as a CHART COPY. Signatures Patient Education Materials PM Discharge Instructions, Mark billingsley (10/16/20) ([id number]) Medication Leaflets My discharge plan and instructions have been reviewed and explained to me and I,AUREA MILES understand my current condition and have read and understand these discharge instructions. I have received a written copy of the plan/instructions. If I have questions, I am aware that I should contact my doctor. 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 She reports pain involving the lower back rating down the right lower extremity. Responded well to the previous epidurals injection. Patient continues to use gabapentin as prescribed with no side effects. Review of Systems Ambulatory Comprehensive Intake - Pain Management Entered On: 03/11/2022 9:42 EDT Performed On: 03/11/2022 9:29 EDT by RAVEN Brumfield Chief Complaint : Pt c/o right buttock that radiates down right leg Treatment Response : Pt takes gabapentin for good pain control. no refill needed. RAVEN Brumfield - 03/11/2022 9:29 EDT Skeletal Review of Systems Grid Joints Swelling/Stiffness : Yes Pain in Joint(s) : Yes RAVEN Brumfield 03/11/2022 9:29 EDT Neuro Review of Systems Grid Difficulty w/Balance : Yes Difficulty Walking : Yes Sensory Disturbance Lower Extremity (L) : Yes Sensory Disturbance Lower Extremity (R) : Yes Sensory Disturbance Upper Extremity (L) : No Sensory Disturbance Upper Extremity (R) : No Weakness Lower Extremity (L) : No Weakness Lower Extremity (R) : No Weakness Upper Extremity (L) : No Weakness Upper Extremity (R) : No Trouble with speech : No RAVEN Brumfield 03/11/2022 9:29 EDT Stomach/Bowel Review of Systems Grid Constipation : No Diarrhea : No Nausea : No Vomiting : No RAVEN Brumfield 03/11/2022 9:29 EDT Hematology Review of Systems Grid Bleeds Easily : No Blood Clots : No Low Blood Count : No RAVEN Brumfield 03/11/2022 9:29 EDT Sleep Review of Systems Grid Daytime Sleepiness : No Fatigue : No Insomnia : No Snoring : No RAVEN Brumfield 03/11/2022 9:29 EDT Primary Pain Pain Symptoms : Yes Pain Scale Type Adult : 0-10 Pain scale Primary Pain Intensity : 9 Primary Pain Laterality : Right Primary Pain Quality : Aching Primary Pain Location : Buttock Primary Pain Radiation : Yes Primary Pain Radiation Characteristics : right leg RAVEN Brumfield 03/11/2022 9:29 EDT [1] Physical Exam Vitals and Measurements HR: 76(Apical) RR: 18 BP: 154/107(Right Arm) SpO2: 96% HT: 160 cm WT: 91 kg BMI: 35.55 Oxygen Therapy: Room air Primary Pain Intensity: 9 (03/11/22 09:29:00) GENERAL: On examining the patient, patient not in acute distress. HEENT: Reveals neck supple. Normal pupils, reactive. No thyromegaly. NEUROLOGIC: The patient is awake, alert, oriented x3. Cranial nerve exam II through XII grossly intact. Muscle strength bilateral symmetrical 5/5 in the upper and lower extremity. No evidence of light touch perception deficits. Straight leg raise was asymptomatic. Deep tendon reflexes were equivocal bilateral symmetrical in lower extremity MUSCULO-SKELETAL: Tenderness involving the lumbar and lumbosacral paraspinal muscle area on both sides on palpation and range of motion. ABDOMEN: Soft, nontender with positive bowel sounds. Social History Smoking Status - 11/21/2017 Current some day smoker Alcohol Use: Never., 07/01/2020 Substance Abuse Use: Never., 07/01/2020 Tobacco Nicotine Use: Never (less than 100 in lifetime)., 07/01/2020 Family History Cardiovascular disease: Father. Assessment/Plan 1. Lumbosacral radiculopathy 2. Lumbar spinal stenosis 3. Lumbar radiculopathy 4. Lumbar degenerative disc disease We will proceed with a lumbar epidural steroid injection under x-ray guidance. Details of the procedure as well as potential risks, benefits and alternatives including and not limited to medication management, awaiting natural history, exercise based therapy and surgical intervention were discussed with the patient. Risks of the procedure were also discussed with the patient in details including and not limited to bleeding, infection, nerve injury, worsening pain, paralysis, . The patient seems to understand and agreed to proceed with the plan. I also talked with thepatient about the risk of benitez COVID-19. Pre/post procedure instructions were provided to the patient and explained in details patient verbalized agreement and understanding. OARRS report was reviewed and assessed and it was appropriate for patient s prescription regimen. I have reviewed the [place] Automated Rx Reporting System (OARRS) report for this patient for refill pattern and other prescriber involvement as part of the appropriate surveillance for the provision ofacute and chronic controlled medications. The report was requested, reviewed and was considered appropriate in the prescribing process. Thank you, for allowing me to participate in the care of the patient if you have any questions regarding plan of care please do not hesitate to contact me. This document was created using voice recognition software. Spelling, grammar and syntax errors arepossible. Problem List/Past Medical History Ongoing Adult hypothyroidism Anxiety Chronic lower back pain Hyperlipidemia Hypertension Lumbar degenerative disc disease Lumbar radiculopathy Lumbar spinal stenosis Lumbosacral radiculopathy Historical No qualifying data Procedure/Surgical History Lumbar epidural steroid injection: 07/05/21 Lumbar epidural steroid injection: 07/21/20 Lumbar epidural steroid injection: 09/24/19 Allergies Ultram Vicodin oxyCODONE Medications What How Much When Why Instructions Last Dose Unchanged acetaminophen (Tylenol) 650 Milligram by mouth As needed for as needed for pain Unchanged cholecalciferol (Vitamin D3) 5,000 unit(s) by mouth Once a day Unchanged cyanocobalamin (Vitamin B12 500 mcg oral tablet) 1 tab(s) by mouth Every day Unchanged diclofenac (diclofenac sodium 75 mg oral delayed release tablet) 1 tab(s) by mouth Every 12 hours as needed for as needed for arthritis Unchanged escitalopram (escitalopram 10 mg oral tablet) 1 tab(s) by mouth Once a day Unchanged fenofibrate (fenofibrate 134 mg oral capsule) 1 cap by mouth Once a day with a meal Unchanged gabapentin (gabapentin 600 mg oral tablet) 1 tab(s) by mouth Daily at bedtime Lumbar degenerative disc disease Duration: 30 Days fill date 2021 Unchanged herbal/ nutritional product (garlic oral capsule) 1 cap by mouth Two (2) times a day PARSLEY Unchanged hydroCHLOROthiazide (hydroCHLOROthiazide 25 mg oral tablet) 1 tab(s) by mouth Every day Unchanged levothyroxine (levothyroxine 150 mcg (0.15 mg) oral tablet) 1 tab(s) by mouth Once a day Unchanged magnesium oxide (magnesium oxide 400 mg (240 mg elemental magnesium) oral tablet) 1 tab(s) by mouth Once a day Unchanged melatonin Daily at bedtime Unchanged Misc Medication (estroven) 1 cap by mouth Once a day Unchanged valerian (Valerian Root) Unchanged vitamin E (vitamin E 400 intl units oral capsule) by mouth Two (2) times a day [1] Ambulatory Comprehensive Intake - Pain Management; RAVEN Brumfield 03/11/2022 09:29 EDT Digitally Signed by ADELE IRIZARRY MD on 03/11/2022 09:50 AM [facility] [id number] Hospital Discharge instructions Patient Education 12/01/2021 13:09:49 PM Discharge Instructions, Mark billingsley (10/16/20) ([id number]) [facility] Discharge Instructions POST PROCEDURE INSTRUCTIONS ___xx__There are no general limitations to your activities. You may experience some weakness for the next 3-4 hours, in which case you should limit your activity until strength and sensation returns. xx Your pain may increase for the next 24-48 hours, until the injection begins to relieve your pain. xx Rest at home today. xx Do not drive any vehicle, operate any heavy machinery or use any sharp objects for the remainderof the day. xx Be cautious of stairways, since your coordination may be impaired and do not drink alcoholic beverages or make major decisions for 24 hours. xx May resume driving a car in ___6 hours if no sedation was used, in 24 hours if sedation wasused. xx Resume regular activity in 24 hours.. xx Resume your regular diet. Progress diet slowly, starting with water. If no difficulty with swallowing, progress to clear liquids (tea, broth, parvin logan) and then on to solids. xx Resume aspirin products/blood thinners in 24 hours. Start Lovenox injections on date . xx Keep bandaid dry and remove in 24 hours. MEDICATIONS: BEFORE PROCEDURE xx Physician s Pre-procedure Instruction Sheet given to patient. Stop Coumadin/Pradaxa/Eliquis/Xarelto for 5 days before procedure - date . Have ProTime drawn on (Try to have drawn at [facility] to speed results to us). Stop blood thinners Plavix, Pletal for 10 days before procedure date . Stop Aspirin, Persantine, Aggrenox for 7 days before procedure date . Stop Lovenox 24 hours before your appointment time. xx Stop anti-inflammatory medications (Aleve, Advil, Mobic, Naprosyn, etc.) for 5 days before procedure. xx Stop ALL Supplements and Vitamins for 10 days before your procedure. xx Take blood pressure medications the day of your procedure. xx Do not eat ____8 hours before procedure. xx Do not drink 2___ hours before procedure. xx May have clear liquids (water, plain tea/coffee, clear soda) up to 2 hours before procedure. xx Bring someone to drive you home. [facility] 03-04-2022 Hospital Discharge instructions Patient Education 09/17/2021 12:44:58 PM Discharge Instructions, Mark billingsley (10/16/20) ([id number]) [facility] Discharge Instructions POST PROCEDURE INSTRUCTIONS ___xx__There are no general limitations to your activities. You may experience some weakness for the next 3-4 hours, in which case you should limit your activity until strength and sensation returns. xx Your pain may increase for the next 24-48 hours, until the injection begins to relieve your pain. xx Rest at home today. xx Do not drive any vehicle, operate any heavy machinery or use any sharp objects for the remainderof the day. xx Be cautious of stairways, since your coordination may be impaired and do not drink alcoholic beverages or make major decisions for 24 hours. xx May resume driving a car in ___6 hours if no sedation was used, in 24 hours if sedation wasused. xx Resume regular activity in 24 hours.. xx Resume your regular diet. Progress diet slowly, starting with water. If no difficulty with swallowing, progress to clear liquids (tea, broth, parvin logan) and then on to solids. xx Resume aspirin products/blood thinners in 24 hours. Start Lovenox injections on date . xx Keep bandaid dry and remove in 24 hours. MEDICATIONS: BEFORE PROCEDURE xx Physician s Pre-procedure Instruction Sheet given to patient. Stop Coumadin/Pradaxa/Eliquis/Xarelto for 5 days before procedure - date . Have ProTime drawn on (Try to have drawn at [facility] to speed results to us). Stop blood thinners Plavix, Pletal for 10 days before procedure date . Stop Aspirin, Persantine, Aggrenox for 7 days before procedure date . Stop Lovenox 24 hours before your appointment time. xx Stop anti-inflammatory medications (Aleve, Advil, Mobic, Naprosyn, etc.) for 5 days before procedure. xx Stop ALL Supplements and Vitamins for 10 days before your procedure. xx Take blood pressure medications the day of your procedure. xx Do not eat ____8 hours before procedure. xx Do not drink 2___ hours before procedure. xx May have clear liquids (water, plain tea/coffee, clear soda) up to 2 hours before procedure. xx Bring someone to drive you home. [facility] 12-20-2021 Hospital Discharge instructions Patient Education 07/05/2021 12:20:51 PM Discharge Instructions, Mark billingsley (10/16/20) ([id number]) [facility] Discharge Instructions POST PROCEDURE INSTRUCTIONS ___xx__There are no general limitations to your activities. You may experience some weakness for the next 3-4 hours, in which case you should limit your activity until strength and sensation returns. xx Your pain may increase for the next 24-48 hours, until the injection begins to relieve your pain. xx Rest at home today. xx Do not drive any vehicle, operate any heavy machinery or use any sharp objects for the remainderof the day. xx Be cautious of stairways, since your coordination may be impaired and do not drink alcoholic beverages or make major decisions for 24 hours. xx May resume driving a car in ___6 hours if no sedation was used, in 24 hours if sedation wasused. xx Resume regular activity in 24 hours.. xx Resume your regular diet. Progress diet slowly, starting with water. If no difficulty with swallowing, progress to clear liquids (tea, broth, parvin logan) and then on to solids. xx Resume aspirin products/blood thinners in 24 hours. Start Lovenox injections on date . xx Keep bandaid dry and remove in 24 hours. MEDICATIONS: BEFORE PROCEDURE xx Physician s Pre-procedure Instruction Sheet given to patient. Stop Coumadin/Pradaxa/Eliquis/Xarelto for 5 days before procedure - date . Have ProTime drawn on (Try to have drawn at [facility] to speed results to us). Stop blood thinners Plavix, Pletal for 10 days before procedure date . Stop Aspirin, Persantine, Aggrenox for 7 days before procedure date . Stop Lovenox 24 hours before your appointment time. xx Stop anti-inflammatory medications (Aleve, Advil, Mobic, Naprosyn, etc.) for 5 days before procedure. xx Stop ALL Supplements and Vitamins for 10 days before your procedure. xx Take blood pressure medications the day of your procedure. xx Do not eat ____8 hours before procedure. xx Do not drink 2___ hours before procedure. xx May have clear liquids (water, plain tea/coffee, clear soda) up to 2 hours before procedure. xx Bring someone to drive you home. [facility] 12-20-2021 Evaluation + Plan noteExtracted from: Title:PM H&P Author:ADELE IRIZARRY MD ate:07/05/21 1. Lumbosacral radiculopathy 2. Lumbar spinal stenosis 3. Lumbar radiculopathy 4. Lumbar degenerative disc disease, Lumbar degenerative disc disease Ordered: gabapentin, Dose : 600 mg = 1 tab(s), Oral, qHS, # 30 tab(s), 2 Refill(s), Pharmacy: [id number], Lumbar degenerative disc disease, 165.1, cm, 07/05/21 12:12:00 EST, Height, 87.2, kg, 07/05/21 12:12:00 EST, Dosing Weight 5. Chronic lower back pain Orders: Discharge PM Return to Office I will proceed with another lumbar epidural steroid injection under x-ray guidance. OARRS report was reviewed and assessed and it was appropriate for patient s prescription regimen. I have reviewed the [place] Automated Rx Reporting System (OARRS) report for this patient for refill pattern and other prescriber involvement as part of the appropriate surveillance for the provision of acute and chronic controlled medications. The report was requested, reviewed and was considered appropriate in the prescribing process. Thank you, for allowing me to participate in the care of the patient if you have any questions regarding plan of care please do not hesitate to contact me. This document was created using voice recognition software. Spelling, grammar and syntax errors are possible.Details of the procedure as well as potential risks, benefits and alternatives including and not limited to medication management, awaiting natural history, exercise based therapy and surgical intervention were discussed with the patient. Risks of the procedure were also discussed with the patient in details including and not limited to bleeding, infection, nerve injury, worsening pain, paralysis, . The patient seems to understand and agreed to proceed with the plan. I also talked with the patient about the risk of benitez COVID-19. Pre/post procedure instructions were provided to the patient and explained in details patient verbalized agreement and understanding. [facility] 10-20-2021 Hospital Discharge instructions Patient Education 05/05/2021 12:29:54 PM Discharge Instructions, Mark billingsley (10/16/20) ([id number]) [facility] Discharge Instructions POST PROCEDURE INSTRUCTIONS ___xx__There are no general limitations to your activities. You may experience some weakness for the next 3-4 hours, in which case you should limit your activity until strength and sensation returns. xx Your pain may increase for the next 24-48 hours, until the injection begins to relieve your pain. xx Rest at home today. xx Do not drive any vehicle, operate any heavy machinery or use any sharp objects for the remainderof the day. xx Be cautious of stairways, since your coordination may be impaired and do not drink alcoholic beverages or make major decisions for 24 hours. xx May resume driving a car in ___6 hours if no sedation was used, in 24 hours if sedation wasused. xx Resume regular activity in 24 hours.. xx Resume your regular diet. Progress diet slowly, starting with water. If no difficulty with swallowing, progress to clear liquids (tea, broth, parvin logan) and then on to solids. xx Resume aspirin products/blood thinners in 24 hours. Start Lovenox injections on date . xx Keep bandaid dry and remove in 24 hours. MEDICATIONS: BEFORE PROCEDURE xx Physician s Pre-procedure Instruction Sheet given to patient. Stop Coumadin/Pradaxa/Eliquis/Xarelto for 5 days before procedure - date . Have ProTime drawn on (Try to have drawn at [facility] to speed results to us). Stop blood thinners Plavix, Pletal for 10 days before procedure date . Stop Aspirin, Persantine, Aggrenox for 7 days before procedure date . Stop Lovenox 24 hours before your appointment time. xx Stop anti-inflammatory medications (Aleve, Advil, Mobic, Naprosyn, etc.) for 5 days before procedure. xx Stop ALL Supplements and Vitamins for 10 days before your procedure. xx Take blood pressure medications the day of your procedure. xx Do not eat ____8 hours before procedure. xx Do not drink 2___ hours before procedure. xx May have clear liquids (water, plain tea/coffee, clear soda) up to 2 hours before procedure. xx Bring someone to drive you home. [facility] 10-20-2021 Evaluation + Plan noteExtracted from: Title:PM H&P Author:ADELE IRIZARRY MD ate:05/05/21 1. Chronic lower back pain 2. Lumbosacral radiculopathy 3. Lumbar spinal stenosis 4. Lumbar radiculopathy 5. Lumbar degenerative disc disease I will proceed with a lumbar epidural injection under x-ray guidance Details of the procedure as well as potential risks, benefits and alternatives including and not limited to medication management, awaiting natural history, exercise based therapy and surgical intervention were discussed with the patient. Risks of the procedure were also discussed with the patient in details including and not limited to bleeding, infection, nerve injury, worsening pain, paralysis, . The patient seems to understand and agreed to proceed with the plan. I also talked with the patient about the risk of benitez COVID-19. Pre/post procedure instructions were provided to the patient and explained in details patient verbalized agreement and understanding. OARRS report was reviewed and assessed and it was appropriate for patient s prescription regimen. I have reviewed the [place] Automated Rx Reporting System (OARRS) report for this patient for refill pattern and other prescriber involvement as part of the appropriate surveillance for the provision of acute and chronic controlled medications. The report was requested, reviewed and was considered appropriate in the prescribing process. Thank you, for allowing me to participate in the care of the patient if you have any questions regarding plan of care please do not hesitate to contact me. This document was created using voice recognition software. Spelling, grammar and syntax errors are possible. Future Appointments Appointment Date:07/05/2021 12:00:00 PM Scheduled Provider: Location:Pain Management- [place] Appointment Type:PM Inj Spine L/S With Imaging [facility] Evaluation + Plan note Future Appointments Appointment Date:09/17/2021 12:30:00 PM Scheduled Provider: Location:Pain Management- [place] Appointment Type:PM Inj Spine L/S With Imaging [facility] Evaluation + Plan note Future Appointments Appointment Date:02/04/2022 11:30:00 AM Scheduled Provider:CHEPE DODSON Location:PM Office Appointment Type:PM OV IVORY AT [facility] Evaluation + Plan note Future Appointments Appointment Date:02/25/2022 07:00:00 AM Scheduled Provider: Location:Pain Management- [place] Appointment Type:PM Inj Spine L/S With Imaging [facility] Evaluation + Plan note Future Appointments Appointment Date:05/27/2022 01:00:00 PM Scheduled Provider: Location:Pain Management- [place] Appointment Type:PM Inj Spine L/S With Imaging [facility] Evaluation + Plan note Future Appointments Appointment Date:08/05/2022 11:30:00 AM Scheduled Provider:CHEPE DODSON Location:PM Office Appointment Type:PM OV IVORY AT [facility] Evaluation + Plan note Future Appointments Appointment Date:08/26/2022 09:30:00 AM Scheduled Provider: Location:Pain Management- [place] Appointment Type:PM Inj Spine L/S With Imaging [facility] Evaluation + Plan note Future Appointments Appointment Date:11/25/2022 11:30:00 AM Scheduled Provider:CHEPE DODSON APRN-RESEARCH NURSE Location:PM Office Appointment Type:PM OV IVORY AT [facility] Evaluation + Plan note Future Appointments Appointment Date:12/23/2022 07:00:00 AM Scheduled Provider: Location:Pain Management- [place] Appointment Type:PM Inj Spine L/S With Imaging [facility] Evaluation + Plan note Future Appointments Appointment Date:10/02/2023 01:00:00 PM Scheduled Provider:JEFFERY MORELOS APRN-SIGNAL ENGINEER Location:PM Office Appointment Type:PM OV JETHRO AT [facility] Hospital course Narrative No data available for this section [facility] Hospital Discharge instructions No data available for this section [facility] progress note No data available for this section [facility] Summary Purpose Family History No Family History Records Found No data available for this section No data available for this section No data available for this section No Family History Records Found Advance Directives No Advanced Directives Records FoundNo Advanced Directives Records Found Additional Source Comments INFORMATION SOURCE (unrecogn ized section and content) DATE CREATED AUTHOR AUTHOR'S TAMMY ATION 08/10/2023 [facility] ([place]) Care Team (unrecognized sect ion and content) Personnel Name: DAGO DE DIOS MD Address: [address] [place] [id number] Care Team Personnel Name: CHEPE DODSON APRN-RESEARCH NURSE Position: P4 Advanced Radio Station Manager Member Role: Pain Management Address: Address: [address] [facility] Pain [place] [address]- [place] Name: ADELE IRIZARRY MD Position: P4 Physician - General Surgery Member Role: Pain Management Address: Address: [address] [facility] [place] [address]- [place] Name: DAGO DE DIOS MD Position: Physician Member Role: Primary Care Physician Address: Address: [address] [place] [address]- Care Team Related Persons Name: SIMÓN MILES Name: NUBIA, LORAINA Care Team Personnel Name: CHEPE DODSON Position: P4 Advanced Radio Station Manager Member Role: Pain Management [facility]: [facility] [address] [facility] [place] [address]- Name: ADELE IRIZARRY MD Position: P4 Physician - General Surgery Member Role: Pain Management Address: Address: [address] [facility] [place] [address]- [place] Name: DAGO DE DIOS MD Position: Physician Member Role: Primary Care Physician Address: Address: [address] [place] [address]- Care Team Related Persons Name: SIMÓN MILES Name: NUBIA, LORAINA Care Team Personnel Name: CHEPE DODSON Position: P4 Advanced Radio Station Manager Member Role: Pain Management Address: Address: [address] [facility] [place] [address]- [place] Name: ADELE IRIZARRY MD Position: P4 Physician - General Surgery Member Role: Pain Management Address: Address: [address] [facility] [place] [address]- [place] Name: DAGO DE DIOS MD Position: Physician Member Role: Primary Care Physician Address: Address: [address] [place] [address]- Care Team Related Persons Name: SIMÓN MILES Name: NUBIA, LORAINA Care Team Personnel Name: CHEPE DODSON Position: P4 Advanced Radio Station Manager Member Role: Pain Management Address: Address: [address] [facility] [place] [address]- [place] Name: ADELE IRIZARRY MD Position: P4 Physician - General Surgery Member Role: Pain Management Address: Address: [address] [facility] [place] [address]- [place] Name: DAGO DE DIOS MD Position: Physician Member Role: Primary Care Physician Address: Address: [address] [place] [address]- [place] Care Team Related Persons Name: SIMÓN MILES Name: NUBIA, LORAINA Care Team Personnel Name: CHEPE DODSON Position: Hospitalist Advanced Practice Nurse Member Role: Pain Management Address: Address: [address] [place] [address]- [place] Name: ADELE IRIZARRY MD Position: P4 Physician - General Surgery Member Role: Pain Management Address: Address: [address] [facility] [place] [address]- [place] Name: DAGO DE DIOS MD Position: Physician Member Role: Primary Care Physician Address: Address: [address] [place] [address]- Care Team Related Persons Name: SIMÓN MILES Name: SARAH DELACRUZ Care Team (unrecognized sect ion and content) Care Team Personnel Name: CHEEP DODSON Position: Advanced Practice Nurse Med Service: Active Provider Member Role: Pain Management Address: Address: [address] [facility] Pain [place] [address]- Name: ADELE IRIZARRY MD Position: P4 Physician - General Surgery Med Service: Active Provider Member Role: Pain Management Address: Address: [address] [facility] [place] [address]- [place] Name: DAGO DE DIOS MD Position: Physician Med Service: Active Provider Member Role: Primary Care Physician Address: Address: [address] [place] [address]- Care Team Related Persons Name: SIMÓN MILES Name: EDA DELACRUZAINA Care Team Personnel Name: CHEPE DODSON Position: P4 Advanced Practice Nurse Address: Address: [address] [facility] [place] [address]- [place] Name: ADELE IRIZARRY MD Position: P4 Physician - General Surgery Address: Address: [address] [facility] [place] [address]- [place] Name: DAGO DE DIOS MD Position: Physician Member Role: Primary Care Physician Address: Address: [address] [place] [address]- [place] Care Team Related Persons Name: SIMÓN MILES Name: EDA DELACRUZAINA Care Team Personnel Name: DODSON, CHEPE GAS TENDER-RESEARCH NURSE Position: P4 Advanced Practice Nurse Member Role: Pain Management Address: [facility] [address] [facility] [place] [address]- [place] Name: ADELE IRIZARRY MD Position: P4 Physician - General Surgery Member Role: Pain Management Address: Address: [address] [facility] [place] [address]- [place] Name: DAGO DE DIOS MD Position: Physician Member Role: Primary Care Physician Address: Address: [address] [place] [address]- [place] Care Team Related Persons Name: SIMÓN MILES Name: NUBIA, LORAINA Care Team Personnel Name: CHEPE DODSON APRN-RESEARCH NURSE Position: P4 Advanced Practice Nurse Member Role: Pain Management Address: [facility]: [address] [facility] [place] [address]- [place] Name: ADELE IRIZARRY MD Position: P4 Physician - General Surgery Member Role: Pain Management Address: Address: [address] [facility] [place] [address]- [place] Name: DAGO DE DIOS MD Position: Physician Member Role: Primary Care Physician Address: Address: [address] [place] [address]- [place] Care Team Related Persons Name: SIMÓN MILES Name: NUBIA, LORAINA Care Team Personnel Name: CHEPE DODSON APRN-RESEARCH NURSE Position: P4 Advanced Practice Nurse Member Role: Pain Management [facility]: [facility] [address] [facility] [place] [address] [place] Name: ADELE IRIZARRY MD Position: P4 Physician - General Surgery Member Role: Pain Management Address: Address: [address] [facility] [place] [address]- [place] Name: DAGO DE DIOS MD Position: Physician Member Role: Primary Care Physician Address: Address: [address] [place] [address]- [place] Care Team Related Persons Name: SIMÓN MILES Name: NUBIA, LORAINA Care Team Personnel Name: CHEPE DODSON APRN-RESEARCH NURSE Position: P4 Advanced Practice Nurse Member Role: Pain Management [facility]: [facility] [address] [facility] [place] [address] [place] Name: ADELE IRIZARRY MD Position: P4 Physician - General Surgery Member Role: Pain Management Address: Address: [address] [facility] [place], [place] [address] Name: DAGO DE DIOS MD Position: Physician Member Role: Primary Care Physician Address: Address: [address] [place], [place] [address] Care Team Related Persons Name: SIMÓN MILES Name: SARAH DELACRUZ FOR RECORDS PERTAINING TO PATIENTS WHO ARE OR HAVE BEEN ENROLLED IN A CHEMICAL DEPENDENCY/SUBSTANCEABUSE PROGRAM, SOME INFORMATION MAY BE OMITTED. This clinical summary was aggregated from multiple sources. Caution should be exercised in using it in the provision of clinical care. This summary normalizes information from multiple sources, and as a consequence, information in this document may materially change the coding, format and clinical context of patient data. In addition, data may be omitted in some cases. CLINICAL DECISIONS SHOULD BE BASED ON THE PRIMARY CLINICAL RECORDS. [facility] [employer] provides no warranty or guarantee of the accuracy or completeness of information in this document.
== END | disposition home or self-care (01) ==
PROVIDERS: PCP Physician Assistant; Referring Provider Physician Assistant; Visit Provider Physician Assistant
DX: R05.9 Cough, unspecified (principal)
CPT/HCPCS: 71046

== ENCOUNTER → 2023-11-22 | Outpatient (CLI) | payer MEDICARE, SELFPAY ==
[2023-11-22 12:31] LABS: Absolute Neutrophil Count 4.4 X10^3/uL (2.0-7.7); Basophil# 0.04 X10^3/uL; Basophil% 0.6 % (0-1); Eosinophil# 0.09 X10^3/uL; Eosinophils% 1.3 % (0-5); Hematocrit 45.4 % (37-47); Hemoglobin 13.8 g/dL (12.0-15.0); Lymphocyte % 30.9 % (19-41); Mean Corp Hgb Conc 30.4 g/dL (32-36); Mean Corpuscular Hgb 28.6 pg (27.0-32.0); Mean Platelet Vol. 11.1 fl (6.2-12.0); Monocyte# 0.33 X10^3/uL; Monocyte% 4.6 % (0-10); NRBC Flagged by Analyzer 0 % (0-5); Neutrophil # 4.43 X10^3/uL (2.7-7.7); Neutrophil % 62.2 % (47-70); Platelet Count 309 K/mm3 (150-450); RBC Distribution Width CV 12.8 % (11.6-14.6); Red Blood Count 4.83 M/mm3 (4.2-5.4); White Blood Count 7.1 K/mm3 (4.4-11.0)
[2023-11-22 12:59] LABS: ALB/GLOB Ratio 1.2 RATIO (0.9-2.4); AST(SGOT) 20 U/L (15-37); Alanine Aminotransfer ALT/SGPT 23 U/L (13-56); Alkaline Phosphatase 71 U/L (45-117); Anion Gap 4 (5-15); BUN 15 mg/dL (7-18); BUN/Creat Ratio 23.2 RATIO (10-20); Calcium,Total 9.8 mg/dL (8.5-10.1); Chloride 109 mmol/L (98-107); Creatinine, Serum 0.65 mg/dL (0.55-1.02); EST Glomerular Filtration Rate 95 mL/min (>60); Est Glom Filt Rate - Afr Amer 115 mL/min (>60); Globulin 3.4 g/dL (2.2-4.2); Glucose 119 mg/dL (74-106); Potassium 3.9 mmol/L (3.5-5.1); Protein, Total 7.4 g/dL (6.4-8.2); Sodium Level 141 mmol/L (136-145)
[2023-11-22 15:08] LABS: Hemoglobin A1c 5.6 % (3.8-5.6)
== END | disposition home or self-care (01) ==
LOC: BIMLAB 10:07
PROVIDERS: PCP Physician Assistant; Visit Provider Physician Assistant
DX: I10 Essential (primary) hypertension (principal); R73.09 Other abnormal glucose
CPT/HCPCS: 36415; 80053; 83036; 85025

== ENCOUNTER → 2024-07-11 | Outpatient (CLI) | payer MEDICARE, SELFPAY ==
[2024-07-11 15:08] LABS: Absolute Lymphocyte Count 1.88 X10^3/uL (0.83-4.51); Absolute Neutrophil Count 3.7 X10^3/uL (2.0-7.7); Basophil# 0.09 X10^3/uL; Basophil% 1.4 % (0-1); Eosinophil# 0.32 X10^3/uL; Hematocrit 42.3 % (37-47); Hemoglobin 12.8 g/dL (12.0-15.0); Lymphocyte # 1.88 X10^3/ul (0.83-4.51); Lymphocyte % 29.6 % (19-41); Mean Corp Hgb Conc 30.3 g/dL (32-36); Mean Corpuscular Hgb 28.8 pg (27.0-32.0); Mean Corpuscular Volume 95.1 fL (81-99); Mean Platelet Vol. 11.1 fl (6.2-12.0); Monocyte# 0.38 X10^3/uL; NRBC Flagged by Analyzer 0 % (0-5); Neutrophil # 3.66 X10^3/uL (2.7-7.7); Neutrophil % 57.7 % (47-70); Platelet Count 298 K/mm3 (150-450); RBC Distribution Width CV 12.8 % (11.6-14.6); RBC Distribution Width SD 45.2 fl (35.1-43.9); Red Blood Count 4.45 M/mm3 (4.2-5.4); White Blood Count 6.4 K/mm3 (4.4-11.0)
[2024-07-11 15:48] LABS: ALB/GLOB Ratio 1.2 RATIO (0.9-2.4); AST(SGOT) 23 U/L (15-37); Alanine Aminotransfer ALT/SGPT 28 U/L (13-56); Albumin, Serum 3.9 g/dL (3.2-5.0); Alkaline Phosphatase 75 U/L (45-117); Anion Gap 5 (5-15); BUN 16 mg/dL (7-18); BUN/Creat Ratio 29.5 RATIO (10-20); Calcium,Total 9.5 mg/dL (8.5-10.1); Chloride 106 mmol/L (98-107); Creatinine, Serum 0.54 mg/dL (0.55-1.02); EST Glomerular Filtration Rate 116 mL/min (>60); Est Glom Filt Rate - Afr Amer 140 mL/min (>60); Globulin 3.2 g/dL (2.2-4.2); Glucose 106 mg/dL (74-106); Potassium 4.2 mmol/L (3.5-5.1); Protein, Total 7.1 g/dL (6.4-8.2); Sodium Level 141 mmol/L (136-145); T4 Free Direct 1.63 ng/dL (0.76-1.46); T4 Total, Thyroxin 16.9 ug/dL (4.8-13.9); Thyroid Stim Hormone (TSH) 0.299 uIU/mL (0.358-3.740)
[2024-07-11 15:49] LABS: Vitamin D,25 Hydroxy 14.6 ng/mL
== END | disposition home or self-care (01) ==
LOC: BIMLAB 14:04
PROVIDERS: PCP Physician Assistant; Referring Provider Physician Assistant; Visit Provider Physician Assistant
DX: E07.9 Disorder of thyroid, unspecified (principal); I10 Essential (primary) hypertension; E55.9 Vitamin D deficiency, unspecified
CPT/HCPCS: 36415; 80053; 82306; 84436; 84439; 84443; 85025

== ENCOUNTER → 2024-09-13 | Outpatient (CLI) | payer MEDICARE, SELFPAY ==
[2024-09-13 12:59] LABS: T4 Total, Thyroxin 11.3 ug/dL (4.8-13.9); Thyroid Stim Hormone (TSH) 0.471 uIU/mL (0.300-4.200)
== END | disposition home or self-care (01) ==
LOC: BIMLAB 11:03
PROVIDERS: PCP Physician Assistant; Referring Provider Physician Assistant; Visit Provider Physician Assistant
DX: E07.9 Disorder of thyroid, unspecified (principal)
CPT/HCPCS: 36415; 84436; 84439; 84443

== ENCOUNTER → 2025-04-14 | Outpatient (CLI) | payer MEDICARE, SELFPAY ==
--- OUTSIDE RECORDS SUMMARY | 2025-02-17 10:43 | XMS RPT_ITS ---
Author Name Auto Generated Organization [facility] Care Team Providers Care Hand Reamer Name Role Phone BECCA ALBRECHT Primary Care Unavailab AN Mendoza Referring Unavailable PHYSICIAN, NOT RECORDED Primary Care Unavaila ble LYNDA ARORA Attending Daphnie vailable PHYSICIAN, NOT RECORDED Primary Care Unavaila ble LYNDA ARORA Attending Daphnie vailable KRYSTIN MARROQUIN MD, I Attending Unavailable PHYSICIAN, NOT RECORDED Primary Care Unavaila ble PHYSICIAN, NOT RECORDED Primary Care Unavaila ble KRYSTIN MARROQUIN MD, I Attending Unavailable KRYSTIN MARROQUIN MD, I Attending Unavailable PHYSICIAN, NOT RECORDED Primary Care Unavaila ble PROBLEMS DATE TYPE CONDITION / CODE [facility] Radiculopathy, l umbar region / M54.16(ICD-10) LYNDA ARORA [facility] 07/19/2024 Active Encounter for screening for osteoporosis / Z13.820(ICD-10) NA Active [facility] PROCEDURES No Procedure Records Found RESULTS CNPNeva Observed: 07/23/2024 12:00 AM Status: COMPLETED Source: [facility] Telephone (OBGYWM) AUREA MILES ([id number]) 1950 F JAVI Date Time Provider Department 07/23/24 AN BRICEÑO OBGYWM During your visit today, we recorded the following information about you: An Briceño APRN.CNP 07/23/2024 7:03 AM Signed Please let the pt know that her bone density does show a decrease in density, continue with current medications. She can discussed other options with her PCP if she wishes. An Briceño APRN.Noemy Ramirez RN 07/23/2024 8:30 AM Signed Attempted to notify patient. No answer and unable to leave a message. RAVEN Walters Jennifer, RN 07/24/2024 11:03 AM Signed Left voicemail on daughter's voicemail to call the office regarding results. RAVEN Walters Jennifer, RN 07/24/2024 12:48 PM Signed Patient's daughter notified. Noemy Avilez RN Allergies As of Date: 07/23/2024 Noted Allergy Reaction HYDROCODONE-ACETAMINOPHEN 01/31/2020 8 - GI Upset OXYCODONE 03/13/2013 9 - Itching 11 - Vomiting 14 - Other: See Comments Comments: Vomiting and Dizziness ULTRAM (TRAMADOL) 03/13/2013 9 - Itching 14 - Other: See Comments Comments: Dizziness Date Reviewed: 04/05/2024 Reviewed by: Kiarra Anne MA - Fully Assessed Reason for Visit: Results [95] Prescriptions as of 07/24/2024 - soy isofla/blk cohosh/mag bark (ESTROVEN ORAL) Take by mouth. - cyanocobalamin, vitamin B-12, (VITAMIN B12 ORAL) Take by mouth. - ferrous sulfate (IRON) 325 mg (65 mg iron) tablet Take 325 mg by mouth daily with breakfast. - vitamin E, dl,tocopheryl acet, (VITAMIN E, DL, ACETATE,) 100 unit capsule Take 400 Units by mouth once daily. - Ibandronate 150 mg tablet Take 150 mg by mouth once every month. - diclofenac, EC, (VOLTAREN) 75 mg EC tablet Take 75 mg by mouth twice daily. - VITAMIN K2 ORAL Take 100 mg by mouth. - MAGNESIUM OXIDE ORAL Take by mouth. - clotrimazole-betamethasone (LOTRISONE) cream Apply 1 application to affected area twice daily as needed. - aspirin, enteric coated (ASPIRIN, ENTERIC COATED) 81 mg EC tablet Take 81 mg by mouth once daily. - fenofibrate (LOFIBRA) 134 mg capsule Take 134 mg by mouth once daily. - Cholecalciferol, Vitamin D3, (VITAMIN D-3) 5,000 unit tab Take 5,000 Units by mouth once daily. - GLUC/CHND/OM3/DHA/EPA/FISH/STR (GLUCOSAMINE CHONDROITIN PLUS ORAL) Take 1 tablet by mouth once daily. - Naproxen SR (EC-NAPROSYN) 500 mg EC tablet Take 500 mg by mouth twice daily with meals. - hydrochlorothiazide 25 mg tablet Take 25 mg by mouth once daily. - Levothyroxine 125 mcg cap Take 175 mcg by mouth once daily. - Fish Oil-[place]-3 Fatty Acids (OMEGA 3 FISH OIL) 684-1,200 mg CpDR Take by mouth once daily. - MULTIVITAMIN ORAL Take by mouth once daily. Problem List As Of Date 07/23/2024 Noted Resolved Hypothyroid [E03.9] 03/13/2013 HTN (hypertension) [I10] 03/13/2013 Hot flashes due to menopause [N95.1] 10/05/2016 Osteopenia of lumbar spine [M85.88] 11/30/2017 Encounter Status:Closed by NOEMY AVILEZ on 07/24/24 BD DXA TRABECLR BONE SCORE (TBS) Observed: 07/19/2024 1:40 PM Status: F Source: [facility] * * *Final Report* * * DATE OF EXAM: Jul 19 2024 1:40PM WRB 0801 - BD DXA TRABECLR BONE SCORE (TBS) / PROCEDURE REASON: Encounter for screening for osteoporosis * * * * Physician Interpretation * * * * EXAMINATION: DXA BONE DENSITOMETRY BD DXA - AXIAL SKELETON, BD DXA TRABECLR BONE SCORE (TBS) PATIENT DEMOGRAPHICS: Age: 73 years, Gender: Female SCANNER INFORMATION: DXA Model: [employer] - Med[employer]herence C 54993 Date Scanned: 07/19/2024 1:40 PM CLINICAL HISTORY: SCREENING Encounter for screening for osteoporosis . RISK FACTORS FOR OSTEOPOROSIS AND ASSOCIATED FRACTURES REPORTED BY THIS PATIENT: Please refer to Bone Health Questionnaire in the EMR CURRENT THERAPY: Please refer to Bone Health Questionnaire in the EMR TECHNICAL LIMITATIONS: RESULTS: Lumbar spine (L1, L2, L3, L4): 0.883 g/cm2, T-score -1.5 , Z-score 1.0 Lumbar spine: 2018 : 0.859 g/cm2 No statistically significant change Right Femoral Neck: 0.591 g/cm2, T-score -2.3 , Z-score 0.3 Right Femoral Neck: 2018 : 0.633 g/cm2 Statistically significant decrease Right Total Hip: 0.766 g/cm2, T-score -1.4 , Z-score 0.4 Right Total Hip: 2018 : 0.845 g/cm2 Statistically significant decrease Left Femoral Neck: 0.574 g/cm2, T-score -2.5 , Z-score -0.4 Left Femoral Neck: 2018 : 0.619 g/cm2 Statistically significant decrease Left Total Hip: 0.811 g/cm2, T-score -1.1 , Z-score 0.7 Left Total Hip: 2018 : 0.869 g/cm2 Statistically significant decrease CHANGE IS STATISTICALLY SIGNIFICANT IN THE SPINE OR HIP IF GREATER THAN OR EQUAL TO 0.04 g/cm2 VERTEBRAL FRACTURE ASSESSMENT Not performed. TRABECULAR BONE ASSESSMENT TBS score: 1.038 Bone micro-architecture: Degraded (< or = 1.230) IMPRESSION: THE LOWEST T-SCORE IS -2.5 IN THE LEFT HIP 1) DIAGNOSIS (based on BMD alone): OSTEOPOROSIS Caution: Medical conditions other than osteoporosis may cause low bone density, such as osteomalacia or renal osteodystrophy. Clinical correlation is necessary. 2) FRACTURE RISK (Based on TBS adjusted FRAX): 10-year absolute fracture risk: - major osteoporotic fracture = 11 % - hip fracture = 2.8 % - A diagnosis of Osteoporosis, a 10 year probability of hip fracture greater than or equal to 3% or a 10 year probability of any major osteoporosis-related fracture greater than or equal to 20% should be considered for treatment. - DXA scanner generated FRAX calculations may slightly differ from online FRAX calculations due to differences in software versions. - All recommendations and calculations are to be considered as guidelines and should not replace sound clinical judgement - Caution: Fracture risk may be increased independent of BMD in patients with corticosteroid use, age greater than 65 years, or a history of prior fragility fracture. RECOMMENDATIONS: Follow-up in 2 years or as clinically indicated. Patients that are taking corticosteroids, are transplant recipients or have hyperparathyroidism should have annual follow-up. Follow-up scans should always be done on the same machine for accurate comparison. FOR MORE INFORMATION ABOUT DIAGNOSIS AND TREATMENT: [facility]oporosis and Metabolic Bone Disease:? www.ccf.org/arthritis/osteo National Osteoporosis Foundation:? www.nof.org International Society of Clinical Densitometry www.iscd.org Nitrocellulose Maker: PSCJudie Transcribe Date/Time: Jul 22 2024 6:20P Dictated by : KRISTIN FINNEY MD This examination was interpreted and the report reviewed and electronically signed by: KRISTIN FINNEY MD on Jul 22 2024 6:25PM EST [id number] -2.5 BD DXA - AXIAL SKELETON Observed: 2024 1:40 PM Status: F Source: [facility] * * *Final Report* * * DATE OF EXAM: Jul 19 2024 1:40PM WRB 0804 - BD DXA - AXIAL SKELETON / PROCEDURE REASON: Encounter for screening for osteoporosis * * * * Physician Interpretation * * * * EXAMINATION: DXA BONE DENSITOMETRY BD DXA - AXIAL SKELETON, BD DXA TRABECLR BONE SCORE (TBS) PATIENT DEMOGRAPHICS: Age: 73 years, Gender: Female SCANNER INFORMATION: DXA Model: [employer] - Med[employer]herence C 88274 Date Scanned: 07/19/2024 1:40 PM CLINICAL HISTORY: SCREENING Encounter for screening for osteoporosis . RISK FACTORS FOR OSTEOPOROSIS AND ASSOCIATED FRACTURES REPORTED BY THIS PATIENT: Please refer to Bone Health Questionnaire in the EMR CURRENT THERAPY: Please refer to Bone Health Questionnaire in the EMR TECHNICAL LIMITATIONS: RESULTS: Lumbar spine (L1, L2, L3, L4): 0.883 g/cm2, T-score -1.5 , Z-score 1.0 Lumbar spine: 2018 : 0.859 g/cm2 No statistically significant change Right Femoral Neck: 0.591 g/cm2, T-score -2.3 , Z-score 0.3 Right Femoral Neck: 2018 : 0.633 g/cm2 Statistically significant decrease Right Total Hip: 0.766 g/cm2, T-score -1.4 , Z-score 0.4 Right Total Hip: 2018 : 0.845 g/cm2 Statistically significant decrease Left Femoral Neck: 0.574 g/cm2, T-score -2.5 , Z-score -0.4 Left Femoral Neck: 2018 : 0.619 g/cm2 Statistically significant decrease Left Total Hip: 0.811 g/cm2, T-score -1.1 , Z-score 0.7 Left Total Hip: 2018 : 0.869 g/cm2 Statistically significant decrease CHANGE IS STATISTICALLY SIGNIFICANT IN THE SPINE OR HIP IF GREATER THAN OR EQUAL TO 0.04 g/cm2 VERTEBRAL FRACTURE ASSESSMENT Not performed. TRABECULAR BONE ASSESSMENT TBS score: 1.038 Bone micro-architecture: Degraded (< or = 1.230) IMPRESSION: THE LOWEST T-SCORE IS -2.5 IN THE LEFT HIP 1) DIAGNOSIS (based on BMD alone): OSTEOPOROSIS Caution: Medical conditions other than osteoporosis may cause low bone density, such as osteomalacia or renal osteodystrophy. Clinical correlation is necessary. 2) FRACTURE RISK (Based on TBS adjusted FRAX): 10-year absolute fracture risk: - major osteoporotic fracture = 11 % - hip fracture = 2.8 % - A diagnosis of Osteoporosis, a 10 year probability of hip fracture greater than or equal to 3% or a 10 year probability of any major osteoporosis-related fracture greater than or equal to 20% should be considered for treatment. - DXA scanner generated FRAX calculations may slightly differ from online FRAX calculations due to differences in software versions. - All recommendations and calculations are to be considered as guidelines and should not replace sound clinical judgement - Caution: Fracture risk may be increased independent of BMD in patients with corticosteroid use, age greater than 65 years, or a history of prior fragility fracture. RECOMMENDATIONS: Follow-up in 2 years or as clinically indicated. Patients that are taking corticosteroids, are transplant recipients or have hyperparathyroidism should have annual follow-up. Follow-up scans should always be done on the same machine for accurate comparison. FOR MORE INFORMATION ABOUT DIAGNOSIS AND TREATMENT: [facility] Osteoporosis and Metabolic Bone Disease:? www.ccf.org/arthritis/osteo National Osteoporosis Foundation:? www.nof.org International Society of Clinical Densitometry www.iscd.org Nitrocellulose Maker: TYRONE Transcribe Date/Time: Jul 22 2024 6:20P Dictated by : KRISTIN FINNEY MD This examination was interpreted and the report reviewed and electronically signed by: KRISTIN FINNEY MD on Jul 22 2024 6:25PM EST [id number] -2.5 PROGRESS Observed: 07/19/2024 1:05 PM Status: COMPLETED Source: [facility] HNO ID: [id number] Author: KASEY GUTIERREZ RT(R) Service: ? Author Type: Technologist Type: Progress Notes Filed: 07/19/2024 13:25 Note Text: Radiology Service Progress Note PATIENT NAME: Aurea Miles DATE OF SERVICE: July 19, 2024 TIME: 1:08 PM PATIENT IDENTITY VERIFICATION COMPLETED USING TWO (2) IDENTIFIERS: Name and Date of confirmed by patient verbally. FALL SCREENING: Has the patient had 2 falls in the last year or 1 fall with injury or currently using an Ambulatory Assistive Device (Walker, Cane, Wheelchair, Crutches, etc.)? No PATIENT GENDER DATA: Female. status: : No status: NO. PATIENT RELEVANT IMPLANT DATA REVIEWED: Not Applicable PATIENT PRESENTS WITH AN IMPLANTABLE OR ATTACHED POINT OF CARE SPECIALIST: No RADIOLOGY DEPARTMENT: Bone Density PERIPHERAL IV DATA: Not applicable SIGNED BY: RT Wilder(R) July 19, 2024 1:08 PM ALLERGIES DATE TYPE / CODE NAME / CODE REACTION SEVERITY SOURCE 01/31/2020 DRUG/[id number](S NOMED CT) HYDROCODONE-ACETAMIN OPHEN GI UPSET [facility] 03/13/2013 DRUG INGREDI/[id number] 3(SNOMED CT) OXYCODONE ITCHING [facility] 03/13/2013 DRUG INGREDI/[id number] 3(SNOMED CT) TRAMADOL ITCHING [facility] ENCOUNTERS ADMIT/DISCHARGE ACCOUNT NUMBER ADMITTING ENCOUNTER CLASS LOCATION SOURCE 02/17/2025/ 5 [id number] Ambulatory [facility] 02/04/2025/ 5 [id number] Ambulatory ABuilding:[facility] 11/25/2024/ 5 [id number] Ambulatory ABuilding:[facility] 10/22/2024/ 5 [id number] Ambulatory ABuilding:[facility] 07/19/2024/ 5 [id number] 07/18/2024/ 5 [id number] Ambulatory ABuilding:[facility] PAYERS ENCOUNTER GUARANTOR PAYER SUBSCRIBER SOURCE 02/17/2025 AUREA LARIOSB: [id number] [facility] [address] [place] [phone]: (HP) Primary Insurance:[employer] MEDICARE COMPLETE INSCOPolicy Number: [id number] Date:[id number] Name:[facility] Karl [address], [place] [address]QT: AUREA LARIOSB: [id number] [place] [phone]: (HP) () [facility] 02/04/2025 AUREA LARIOSB: [address] [place] [phone]: (HP) Primary Insurance:[employer] MEDICARE COMPLETE INSCOPolicy Number: [id number] Date:[id number] Name:ALINE Karl [address] [place] [address]VJ: AUREA Lee CORIUCHERDOB: [id number] [place] [phone]: (HP) (WP) [facility] 11/25/2024 AUREA PERSAUDUCHERDOB: [id number] [address] [place] [phone]: (HP) Primary Insurance:[facility] MEDICARE COMPLETE INSCOPolicy Number: [id number] Date:[id number] Name:ALINE Karl [address] [place] [address]UC: AUREA Lee BRAUCHERDOB: [id number] [place] [phone]: (HP) (WP) [facility] 10/22/2024 AUREA Lee CORICARIDADDOB: [id number] [address] [place] [phone]: (HP) Primary Insurance:[facility] MEDICARE COMPLETE INSCOPolicy Number: [id number] Date:7040-92-96Vdir Name:[facility] [address] [place] [address]IE: AUREA Lee BRAUCHERDOB: [id number] [address] [place] [phone]: (HP) () [facility] 07/19/2024 Primary Insurance:[facility] MEDICARE HMOPolicy Number: [id number] Date:[id number] Name:Neva AUREA Lee CORIUCHERDOB: [id number] [address] [place] [address] [facility] 07/18/2024 AUREA LARIOSB: [id number] [facility] [address] [place] [phone]: (HP) Primary Insurance:[employer] MEDICARE COMPLETE INSCOPolicy Number: [id number] Date:[id number] Name:HA [address] [address], [place] [address]YB: AUREA LARIOSB: [id number] [facility] [address] [place] [phone]: (HP) (WP) [facility]
--- NOTE | 2025-04-14 16:03 | CT_ITS ---
PROCEDURE: CHEST WITHOUT CONTRAST 04/14/2025 REASON FOR EXAM: FOLLOW-UP TECHNIQUE: Chest CT without contrast. Coronal and Sagittal reconstruction series were provided. One or more dose reduction techniques were used (e.g., Automated exposure control, adjustment of the mA and/or kV according to patient size, use of iterative reconstruction technique RADIATION DOSE SUMMARY: CTDlvol: 14.4 mGy DLP: 511 mGycm COMPARISON: None FINDINGS: Hardware: None Lymph nodes: There are a few prominent mediastinal lymph nodes the largest measures 8 mm in short axis. Heart and Vasculature: Mild enlargement of the heart Atherosclerotic calcifications of the thoracic aorta. Thoracic aorta and pulmonary arteries have normal contours; noncontrast technique limits evaluation. Coronary Artery Calcifications: Absent Lungs and Airways: Calcified granulomas in the lingula measuring 5 mm as well as a 4 mm calcified nodule. There is a 3 mm micronodule demonstrated in the right minor fissure best seen on image 71 likely represents a lymph node. There is a triangular shaped nodule at the right lung base in the right lower lobe measuring 3 mm best seen on image number 79. Pleura: Unremarkable. Upper Abdomen: Unremarkable Bones: Degenerative changes otherwise unremarkable. CT/Chest without Contrast IMPRESSION: Small micronodules in the right minor fissure as well as in the right lower lob e likely represents lymph nodes. If there are risk factors for smoking, recommend follow-up in 1 year low-dose lung CT. Othe r nodules are calcified in the lingula. No new nodules identified. Nonspecific prominent mediastinal lymph nodes subcentimeter. Reading Location: [place] [address]
--- NOTE | 2025-04-14 16:03 | US_ITS ---
PROCEDURE: THYROID 04/14/2025 REASON FOR EXAM: HYPOTHYROID TECHNIQUE: Procedure Code: USTHY Modality: US Procedure: THYROID FINDINGS: Right thyroid lobe size: 4.1 x 1.3 x 0.8 cm Left thyroid lobe size: 4.1 x 1.2 x 1.2 cm Isthmus: 0.2 cm Background parenchymal echotexture is heterogeneous Nodules: No discrete reproducible thyroid nodule is seen. US/Thyroid IMPRESSION: No discrete thyroid nodule seen. Heterogeneous gland. Reading Location: [id number]
== END | disposition home or self-care (01) ==
LOC: CT 16:01
PROVIDERS: PCP Physician Assistant; Referring Provider Physician Assistant; Visit Provider Physician Assistant
DX: R91.1 Solitary pulmonary nodule (principal); E07.9 Disorder of thyroid, unspecified
CPT/HCPCS: 71250; 76536